=== PATIENT | female | born 1935 | race Caucasian/White ===

== ENCOUNTER 2023-11-28 06:22 | Inpatient (IN) | payer MEDICARE, BC, SELFPAY ==
--- NOTE | 2023-07-24 12:24 | CM ---
Addendum entered by Jennifer Zafar 10/23/23 11:05:
Patient's surgery date has been changed to 11/28/23. Spoke with patient via telephone. Reintroduced role of Orthopedic Navigator and confirmed information previously obtained for case management assessment. Also discussed orthopedic program and post
surgical plans. Reviewed anticipated length of stay and that goal is for her to return home at discharge. Patient states that she is now using a rolling walker most of the day. She also obtained several raised toilet seats. She continues to state
that she will need VN services and will have a private caregiver.
Original Note:
Patient is scheduled for an elective R TKR on 08/29/23. Spoke with patient prior to surgery via telephone. Introduced role of Orthopedic Navigator. Patient reports that she lives alone in a two story home. There are two steps to enter and a flight of
steps to the second floor. She is looking into getting a stair glide for the steps to the second floor. She currently functions independently. She uses a rolling walker in the morning and a cane the rest of the day. She has no other DME. She has
never had VN services. PCP is Dr. Lexus Woods.
Discussed orthopedic program and post surgical plans. Reviewed anticipated length of stay and that goal is for her to return home at discharge. Also reviewed outpatient PT. Patient is in agreement with tentative plan but will need VN services. She
is going to hire a 24 hour private caregiver to be with her for two weeks.
Patient will complete online education.
Plan: Orthopedic Navigator will remain available to assist with the care of patient and will reassess discharge needs after surgery.
[2023-08-07 13:13] VITALS: BMI 26.0
[2023-08-07 14:04] LABS: Hematocrit 40.8 % (37.0-47.0); Hemoglobin 13.5 g/dL (12.0-16.0); Mean Corp Hgb Conc. 33.1 g/dL (33.0-37.0); Mean Corpuscular Hgb 33.5 pg (27.0-31.0); Mean Corpuscular Volume 101.2 fL (81.0-99.0); Mean Platelet Volume 9.3 fL (7.4-10.4); Platelet Count 262 10^3/uL (130-400); Red Blood Cell Count 4.03 10^6/uL (4.20-5.40); Red Cell Dist. Width 12.3 % (11.5-14.5); White Blood Cell Count 6.3 10^3/uL (4.8-10.8)
[2023-08-07 14:19] LABS: ALT (SGPT) 35 U/L (0-35); AST (SGOT) 47 U/L (14-36); Alkaline Phosphatase 72 U/L (38-126); Blood Urea Nitrogen 22 mg/dl (7-17); Calcium 9.5 mg/dl (8.4-10.2); Carbon Dioxide 29 mmol/L (22-30); Chloride 102 mmol/L (98-107); Estimated Creatinine Clearance 51 ml/min; Glucose 90 mg/dl (70-99); Potassium 4.3 mmol/L (3.5-5.1); Sodium 138 mmol/L (135-145); Total Bilirubin 0.6 mg/dl (0.2-1.3); Total Protein 6.4 g/dl (6.3-8.2); eGFR > 60.00
[2023-08-07 15:54] VITALS: BMI 26.0
[2023-08-08 08:51] LABS: Glycohemoglobin (HgbA1c) 5.2 % (4.0-5.6)
[2023-11-06 12:28] VITALS: BMI 26.3
[2023-11-06 14:33] LABS: Hematocrit 40.3 % (37.0-47.0); Hemoglobin 13.8 g/dL (12.0-16.0); Mean Corp Hgb Conc. 34.2 g/dL (33.0-37.0); Mean Corpuscular Hgb 32.2 pg (27.0-31.0); Mean Corpuscular Volume 94.2 fL (81.0-99.0); Mean Platelet Volume 9.4 fL (7.4-10.4); Platelet Count 271 10^3/uL (130-400); Red Blood Cell Count 4.28 10^6/uL (4.20-5.40); Red Cell Dist. Width 12.2 % (11.5-14.5); White Blood Cell Count 8.8 10^3/uL (4.8-10.8)
[2023-11-06 14:49] LABS: ALT (SGPT) 24 U/L (0-35); AST (SGOT) 40 U/L (14-36); Albumin 4.3 g/dl (3.5-5.0); Alkaline Phosphatase 78 U/L (38-126); Blood Urea Nitrogen 32 mg/dl (7-17); Calcium 9.6 mg/dl (8.4-10.2); Carbon Dioxide 22 mmol/L (22-30); Chloride 101 mmol/L (98-107); Estimated Creatinine Clearance 59 ml/min; Glucose 83 mg/dl (70-99); Potassium 4.3 mmol/L (3.5-5.1); Sodium 134 mmol/L (135-145); Total Bilirubin 0.8 mg/dl (0.2-1.3); Total Protein 6.9 g/dl (6.3-8.2); eGFR > 60.00
[2023-11-06 14:50] VITALS: BMI 26.3
[2023-11-07 08:44] LABS: Glycohemoglobin (HgbA1c) 5.4 % (4.0-5.6)
[2023-11-28] VITALS (15 sets, daily range): BP systolic 103–153; BP diastolic 40–97; PULSE 71; O2SAT 91; BMI 26.3
[2023-11-28] MEDS: CELEBREX 200 MG PO (09:15)
[2023-11-28] MEDS: TYLENOL 650 MG PO ×3 (09:16→20:50)
[2023-11-28] MEDS: BACTROBAN NASAL 1 GRAM NASAL (09:16)
[2023-11-28] MEDS: NORMOSOL-R 1000 IV ×2 (09:35→13:01)
--- NOTE | 2023-11-28 12:32 | OR.RPT ---
Addendum entered and electronically signed by Samson Dixon MD 11/28/23 17:56:
Addendum: Note that an adductor canal block was not performed at the end of the case per patient request.
Original Note:
Operative Report
Operative Report
Orthopaedic Surgery Operative Note
DATE OF OPERATION: 11/28/2023
PREOPERATIVE DIAGNOSES: Osteoarthritis, right knee.
POSTOPERATIVE DIAGNOSES: Osteoarthritis, right knee.
OPERATION PERFORMED:
1) Right total knee arthroplasty (CPT 24345)
2) Intraosseous administration of analgesic (CPT 52829)
SURGEON: Samson Dixon MD
ASSISTANTS: Antonio Lovett PA-C who helped with patient and limb positioning and retraction
ANESTHESIA: Spinal by anesthesia plus intreaoperative infusion of morphine into the tibial metaphysis by Dr. Dixon
COMPLICATIONS: None.
ESTIMATED BLOOD LOSS: 20mL
DRAINS: None
TOURNIQUET TIME: 48 minutes.
IMPLANTS:
- Lynne Persona PS Femur, nickel free, size 8
- Lynne Persona tibia base plate, size E
- Lynne Persona 40mm tibial stem
- Lynne Persona CPS articular surface, 10 mm
- All-polyethylene patellar component, size 32
- DJO Kamas bone cement
INDICATIONS: The patient presented to my office with debilitating right knee pain due to osteoarthritis. We reviewed the natural history of this problem, as well as the risks, benefits, and alternatives of various treatment options. The patient
exhausted all nonoperative treatment options and wished to proceed with knee replacement surgery. The patient understood the risks which included, but were not limited to, bleeding, infection, failure to relieve pain, more pain than preop, damage to
blood vessels and nerves, need for reoperation, mechanical failure of the implants, wound healing problems, stiffness, instability, blood clot, pulmonary embolism, myocardial infarction, pneumonia, arrhythmia, CVA, and . The patient accepted
these risks and wished to proceed. All questions were answered, and informed consent was obtained.
PROCEDURE IN DETAIL: The patient was identified in the preoperative holding area. The right knee was identified as the operative site. The patient was taken in the operating room and placed in a supine position on the operating table. Spinal
anesthesia was performed. IV antibiotics and tranexamic acid were administered. An SCD was placed on the left lower extremity. A well-padded tourniquet was placed on the proximal thigh. All bony prominences were well padded. The right lower
extremity was prepped and draped in the usual sterile fashion.
We performed a surgical time-out. An interarticular block was performed with local anesthetic with epinephrine. I performed interosseous administration of morphine-saline solution via a Jamshidi style intraosseous needle into the proximal medial
tibial metaphysis as described by Roderick Borges MD. This was performed to aid in pain control. The limb was exsanguinated with an Esmarch bandage, then the tourniquet was inflated to 250 mmHg. A midline skin incision was made followed by a medial
parapatellar arthrotomy. A subperiosteal peel was performed on the medial tibia. I excised part of the infrapatellar fat pad to improve our visualization as well as tissue over anterior femur. The patella was everted and the knee was flexed. I
excised the remnants of the anterior and posterior cruciate ligaments as well as tibial and femoral osteophytes with rongeurs.
The knee was flexed, and the extramedullary tibial cutting guide was aligned. Catron was aligned at neutral, rotation was centered on the tibial tubercle, and coronal alignment was aligned with the mechanical axis of the tibia and center of the ankle
joint. The cut height was 2mm off the lateral tibia joint surface due to valgus. The guide was secured into place. The MCL and LCL were protected. The tibia surface was cut. The cut surface was inspected after removal to ensure appropriate height
and slope based on the preoperative plan. The cut was checked with a drop perla. It was centered nicely at the ankle.
A drill was used to open the femoral canal. The intramedullary distal femoral cutting guide was inserted into the femur. This was set at 5 degrees +0. This was secured into place with three pins. The cut level was checked with an leon wing. The
distal femur was cut through the cutting guide. The IM guide was reinserted to double check that the level of resection was flush and in appropriate alignment.
Montcalm�s line and the transepicondylar axis were marked on the femur. The femoral sizing guide was applied to the anterior femur. Pins were inserted, and the 4-in-1 cutting guide was applied and secured into place. The rotation was compared to
Carroll�s line, the transepicondylar axis, and the neutral tibia cut and was found to be appropriate. The width was checked and found to be appropriate and lateralized on the femur. The anterior, posterior, and chamfur cuts were made. A lamina
storage wharfage clerk was used to open the flexion gap, and posterior osteophytes were removed with a curved osteotome. The remnant medial and lateral meniscus were also removed. I prophylactically cauterized the lateral geniculate arteries. A 10mm spacer block
was applied to the flexion gap and was noted to be balanced medially and laterally. The knee was extended, and the block showed symmetric to extension and flexion gaps.
The tibia was exposed and sized. Rotation was set in line with the tibial tubercle and congruent with the femur. The trial was secured into place with two pins. The trial femur was impacted into place, and a trial articular surface was placed. The
knee was taken through range of motion and noted to be stable throughout the arc of motion without gaping or excess tension. In extension, a measured resection of the patella was performed. The patella was sized, and lug holes were drilled. A trial
patella component was applied, and it was noted to track centrally throughout the arc of motion without need for further releases.
The trials were removed. The tibia keel was prepared with the punch and the drill. The bone surfaces were irrigated with sterile saline and dried. The cement was mixed in a vacuum mixer. Cement gun was used to apply cement to the tibial surface and
the undersurface of the tibial implant. Cement was pressurized into the tibial canal and tibia surface. The tibial component was impacted into place. Excess cement was removed. Cement was applied to the femoral surface and the femoral component. The
femoral component was impacted into place, and excess cement removed. A trial articular surface was inserted, and the knee was extended while the cement polymerized. The tourniquet was let down, and meticulous hemostasis was achieved. Dilute
betadine was poured into the wound and allowed to soak for 3 minutes. The knee was irrigated with copious normal saline.
Once the cement was polymerized, the trial articular surface was removed. Any excess cement was removed. The knee was trialed, and the final articular surface was selected and inserted into the tibial locking mechanism. The knee was reduced. A fresh
drape was applied to the surgical field.
The arthrotomy was closed with 0-PDS. Once closed, an interarticular block was performed with local anesthetic with epi. The deep dermal layer was closed with 2-0 PDS, and the subcuticular skin was closed with 3-0 monocryl. A Dermabond Prineo
dressing was applied to the skin in full flexion. Once this was completely dry, a sterile waterproof dressing was applied.
The anesthesia team performed an adductor canal block in the OR. The patient awoke from anesthesia without any difficulties. The sponge and instrument counts were correct x2 at the end of the case.
Phill Dixon MD
[2023-11-28] MEDS: ROXICODONE PO ×2 (13:07→14:41)
[2023-11-28] MEDS: ROXICODONE 5 MG PO ×2 (13:09→15:28)
--- NOTE | 2023-11-28 14:23 | W.PN.ORTHO ---
Today's Communication / Plan
-
D/c when clinically stable.
Assessment
.
Distal Motor Intact: Yes
Dressing:
Clean, dry and intact.
Assessment:
R knee OA s/p R TKA w/ Dr Dixon 11/28/23
DVT prophylaxis - Eliquis at modified dosing, b/l venous foot pumps
- Eliquis home dose to be resumed POD 3 if hemodynamically stable
HTN - diet controlled - monitor BP
PACs and PAF, status post pulmonary vein isolation 2016 - monitor on tele
- Resume Eliquis as stated above
TIA, 08/2022, without residual side effects - resume Eliquis as stated above
GERD and hiatal hernia - add Pepcid HS
Mildly elevated AST - reduce max dose of Tylenol daily
Hyperlipidemia
Aortic atherosclerosis
Mild valvular disease
Venous varicosities
Esophageal stricture with dysphagia, status post dilation x2
Colon polyps
Diverticulosis
Nephrolithiasis
Right spigelian hernia
Ocular migraines
Benign thyroid nodules
Left breast cancer, 2019, status post left lumpectomy and radiation
Basal and squamous cell carcinoma, status post recurrent excision
COVID-19 08/2023 without residual side effects
Osteopenia
Tinnitus
Mild hyponatremia
Remote history of tobacco abuse
Plan
.
Surgery / Date: R TKA w/ Dr Dixon 11/28/23
DVT Prophylaxis: Other (Eliquis )
Activity:
Out of bed.
PT/OT
Discharge Plan: Home w/ VN
Subjective
.
.:
Patient resting comfortably in PACU.
R knee pain minimal and currently well tolerated.
Denies any new significant complaints.
Vital Signs and Labs
.
Vital Signs and Labs:
Lab Results
11/06/23 12:23
11/06/23 12:23
Temp Pulse Resp BP Pulse Ox
98.1 F 73 18 153/72 97
11/28/23 09:15 11/28/23 09:15 11/28/23 09:15 11/28/23 09:15 11/28/23 09:15
Physical Exam
-
HEENT: No pallor, cyanosis, or jaundice. Throat clear.
NECK: Supple. No JVD.
RESPIRATORY: Lungs clear to auscultation.
CVS: S1, S2 normal. RRR.�
ABDOMEN: Soft, non-tender. No distension.
EXTREMITIES: Strength equal, no calf pain with palpation/dorsiflexion. Calves soft.
HEMMER LOCKSTITCH: AOx3. No focal deficits. kitchenwhere maker grossly intact
--- NOTE | 2023-11-28 14:30 | PTCARENOTE ---
Patient arrived from PACU. Patient is s/p R TKA. Hemodynamically stable.
[2023-11-28] MEDS: ZOFRAN 4 MG IV (14:41)
[2023-11-28] MEDS: DELTASONE 40 MG PO (15:27)
[2023-11-28] MEDS: LIPITOR 20 MG PO (15:27)
[2023-11-28] MEDS: ANCEF 5 IV (17:42)
[2023-11-28] MEDS: DILAUDID 0.25 MG IV (17:42)
[2023-11-28] MEDS: ROXICODONE 10 MG PO (20:47)
[2023-11-28] MEDS: ELIQUIS 2.5 MG PO (20:50)
[2023-11-28] MEDS: SENOKOT 17.1999999999999993 MG PO (20:50)
[2023-11-28] MEDS: BACTROBAN 2% OINTMENT 1 APPLIC NASAL (20:54)
[2023-11-28] MEDS: COLACE 100 MG PO (20:54)
[2023-11-28] MEDS: PEPCID 20 MG PO (22:59)
[2023-11-29] MEDS: ROXICODONE 10 MG PO (01:00)
[2023-11-29] MEDS: TYLENOL 650 MG PO ×2 (02:18→08:29)
[2023-11-29] MEDS: ANCEF 5 IV (02:18)
[2023-11-29 03:01] VITALS: BP 164/71
[2023-11-29] MEDS: ZOFRAN 4 MG IV ×2 (06:08→12:20)
[2023-11-29] MEDS: ROXICODONE 5 MG PO ×2 (06:20→12:19)
[2023-11-29 07:00] VITALS: BP 154/70
--- NOTE | 2023-11-29 08:21 | W.PN.ORTHO ---
Today's Communication / Plan
-
Await PT and OT recs.
Monitor nausea.
D/c later today if remaining clinically stable.
Assessment
.
Distal Motor Intact: Yes
Dressing:
Clean, dry and intact.
Assessment:
R knee OA s/p R TKA w/ Dr Dixon 11/28/23
DVT prophylaxis - Eliquis at modified dosing, b/l venous foot pumps
- Eliquis home dose to be resumed POD 3 since hemodynamically stable
Nausea post-op - relief provided w/ Zofran - will Rx Zofran prn upon d/c
- Will add daily Protonix
- Did advise Oxycodone w/ food
HTN - diet controlled - BPs stable
PACs and PAF, status post pulmonary vein isolation 2016 - maintaining NSR on tele
- Resumed Eliquis as stated above
TIA, 08/2022, without residual side effects - resumed Eliquis as stated above
GERD and hiatal hernia - switch from Pepcid to Protonix daily for further N/V prevention
Mildly elevated AST - reduced max dose of Tylenol daily
Hyperlipidemia
Aortic atherosclerosis
Mild valvular disease
Venous varicosities
Esophageal stricture with dysphagia, status post dilation x2
Colon polyps
Diverticulosis
Nephrolithiasis
Right spigelian hernia
Ocular migraines
Benign thyroid nodules
Left breast cancer, 2019, status post left lumpectomy and radiation
Basal and squamous cell carcinoma, status post recurrent excision
COVID-19 08/2023 without residual side effects
Osteopenia
Tinnitus
Mild hyponatremia
Remote history of tobacco abuse
Plan
.
Surgery / Date: R TKA w/ Dr Dixon 11/28/23
DVT Prophylaxis: Other (Eliquis )
Activity:
Out of bed.
PT/OT
Discharge Plan: Home w/ VN
Subjective
.
.:
Patient resting comfortably in bed.
Nausea this AM, improved with Zofran as needed.
Denies any other new significant complaints.
Eager for potential d/c today.
Vital Signs and Labs
.
Vital Signs and Labs:
Lab Results
11/06/23 12:23
11/06/23 12:23
Temp Pulse Resp BP Pulse Ox
98.0 F 76 18 154/70 97
11/29/23 07:00 11/29/23 07:00 11/29/23 07:00 11/29/23 07:00 11/29/23 07:00
Non-invasive Hgb result: 11.9
Physical Exam
-
HEENT: No pallor, cyanosis, or jaundice. Throat clear.
NECK: Supple. No JVD.
RESPIRATORY: Lungs clear to auscultation.
CVS: S1, S2 normal. RRR.� No murmur, rub or gallop.
ABDOMEN: Soft, non-tender. No distension.
EXTREMITIES: Expected R knee post-surgical edema. Strength equal, no calf pain with palpation/dorsiflexion. Calves soft.
TIE MILL OPERATOR: AOx3. No focal deficits. ton container shipper grossly intact
[2023-11-29] MEDS: ROXICODONE 2.5 MG PO (08:28)
[2023-11-29] MEDS: LIPITOR 20 MG PO (08:29)
[2023-11-29] MEDS: DELTASONE 40 MG PO (08:30)
[2023-11-29] MEDS: SENOKOT 17.1999999999999993 MG PO (08:30)
[2023-11-29] MEDS: COLACE 100 MG PO (08:30)
[2023-11-29] MEDS: BACTROBAN 2% OINTMENT 1 APPLIC NASAL (08:30)
[2023-11-29] MEDS: ELIQUIS 2.5 MG PO (08:30)
--- NOTE | 2023-11-29 08:39 | CM ---
Addendum entered by Jennifer Zafar 11/29/23 11:55:
Met with patient and her daughter at bedside. Discharge plans again reviewed and neither have concerns at this time about discharge.
Original Note:
Reviewed chart and held rounds with PT, OT and nursing. Patient admitted as planned for elective R TKR. Met with patient at bedside. Confirmed information previously obtained for assessment. Also discussed discharge plans. The plan is for patient to
return home at discharge. Her daughter will be staying with [facility]. She has hired a 24 hour caregiver who will be with her for as long as needed. Reviewed VN services including start of care (tentatively 11/29), services to be ordered (PT, SN) and
frequency/duration of services. Options list provided and PAC data reviewed. Patient selects VN.
Patient has a rolling walker, raised toilet seat and a cane at home.
VN referral was completed and sent to [facility] through [employer] with request for start of care on 11/29. Confirmation received of their ability to accept case. baggage clerk to fax discharge instructions to [facility] when complete.
Patient will use [facility] pharmacy for discharge prescriptions.
[2023-11-29 11:00] VITALS: BP 124/64
--- NOTE | 2023-11-29 12:47 | W.DS.TRANS ---
DC Summary - Rehabilitation Counselor
-
Discharge Instructions:
Sleep Apnea Risk Low
Discharge Diagnosis/Procedures R knee OA s/p R TKA w/ Dr Dixon 11/28/23
Diet Regular
Activity As tolerated,With Walker
Driving Restrictions Not until seen by your Dr
Bathing Restrictions OK to Shower
Other Services PT,VN
Wound Care Leave dressing on until seen by your surgeon's
office in 2 weeks for follow-up.
Instructions:
Stand-Alone Forms: Total Hip/Knee Replacement D/C
Changes to Home Medications: Yes
Discharge Medications:
DC Medications w/original date entered in [employer]
apixaban 5 mg tablet (Eliquis) 5 mg PO BID Blood Clot Prevention/Tx 07/29/23
atorvastatin 20 mg tablet 20 mg PO DAILY High Cholesterol 07/29/23
multivitamin 1 tab PO DAILY Supplement 07/29/23
mupirocin 2 % topical ointment 1 applic intranasal BID #1 tube 11/06/23
acetaminophen 500 mg tablet (Tylenol Extra Strength) 1,000 mg (2 x 500 mg) PO Q8H #30 tabs 11/29/23
apixaban 2.5 mg tablet (Eliquis) 2.5 mg PO BID #3 tabs 11/29/23
docusate sodium 100 mg capsule 100 mg PO BID #30 caps 11/29/23
ondansetron HCl 4 mg tablet 4 mg PO Q6H PRN nausea and vomiting #30 tabs 11/29/23
oxycodone 5 mg tablet 5 - 10 mg (1 - 2 x 5 mg) PO Q4H PRN moderate-severe pain #30 tabs 11/29/23
pantoprazole 40 mg tablet,delayed release (Protonix) 40 mg PO DAILY #14 tabs 11/29/23
prednisone 10 mg tablet 40 mg (4 x 10 mg) PO TAPER #20 tabs 11/29/23
sennosides 8.6 mg tablet (Senna Laxative) 17.2 mg (2 x 8.6 mg) PO BID #30 tabs 11/29/23
Home Medication Changes
acetaminophen 500 mg tablet (Tylenol Extra Strength) 1,000 mg (2 x 500 mg) PO Q8H #30 tabs 11/29/23
apixaban 2.5 mg tablet (Eliquis) 2.5 mg PO BID #3 tabs 11/29/23
docusate sodium 100 mg capsule 100 mg PO BID #30 caps 11/29/23
ondansetron HCl 4 mg tablet 4 mg PO Q6H PRN nausea and vomiting #30 tabs 11/29/23
oxycodone 5 mg tablet 5 - 10 mg (1 - 2 x 5 mg) PO Q4H PRN moderate-severe pain #30 tabs 11/29/23
pantoprazole 40 mg tablet,delayed release (Protonix) 40 mg PO DAILY #14 tabs 11/29/23
prednisone 10 mg tablet 40 mg (4 x 10 mg) PO TAPER #20 tabs 11/29/23
sennosides 8.6 mg tablet (Senna Laxative) 17.2 mg (2 x 8.6 mg) PO BID #30 tabs 11/29/23
Pending Results: No
[2023-11-29] MEDS: PREVNAR 20 0.5 ML IM (13:15)
[2023-11-29 14:11] VITALS: BP 124/64; PULSE 72; O2SAT 93
== END 2023-11-29 14:33 | disposition home health service (06) | DRG 470 ==
LOC: 2 SOUTH 06:22
PROVIDERS: ADMITTING PHYSICIAN Orthopaedic Surgery; FAMILY PHYSICIAN Internal Medicine
PROC: 0SRC0J9 Replacement of Right Knee Joint with Synthetic Substitute, Cemented, Open Approach (ICD-10-PCS; 2023-11-28)
PROC: 3E0234Z Introduction of Serum, Toxoid and Vaccine into Muscle, Percutaneous Approach (ICD-10-PCS; 2023-11-29)
DX: M17.11 Unilateral primary osteoarthritis, right knee (principal); I48.0 Paroxysmal atrial fibrillation; E78.5 Hyperlipidemia, unspecified; I10 Essential (primary) hypertension; K21.9 Gastro-esophageal reflux disease without esophagitis; K44.9 Diaphragmatic hernia without obstruction or gangrene; K43.9 Ventral hernia without obstruction or gangrene; I70.0 Atherosclerosis of aorta; R11.0 Nausea; Z23 Encounter for immunization; Z79.01 Long term (current) use of anticoagulants; Z79.899 Other long term (current) drug therapy; Z86.73 Personal history of transient ischemic attack (TIA), and cerebral infarction without residual deficits; Z87.891 Personal history of nicotine dependence; Z85.3 Personal history of malignant neoplasm of breast; Z86.16 Personal history of COVID-19
CPT/HCPCS: 36415; 73560; 80053; 83036; 85027; 87070; 90677; 97110; 97116; 97162; 97166; 97530; 97535; C1713; C1776; G0009

== ENCOUNTER → 2024-02-14 09:30 | Outpatient (REF) | payer MEDICARE, BC, SELFPAY ==
[2024-02-14 10:07] LABS: Hematocrit 41.2 % (37.0-47.0); Hemoglobin 13.2 g/dL (12.0-16.0); Mean Corpuscular Hgb 29.5 pg (27.0-31.0); Mean Corpuscular Volume 92.2 fL (81.0-99.0); Mean Platelet Volume 8.6 fL (7.4-10.4); Platelet Count 459 10^3/uL (130-400); Red Blood Cell Count 4.47 10^6/uL (4.20-5.40); Red Cell Dist. Width 12.2 % (11.5-14.5); White Blood Cell Count 6.9 10^3/uL (4.8-10.8)
[2024-02-14 10:37] LABS: Blood Urea Nitrogen 22 mg/dl (7-17); Calcium 10.1 mg/dl (8.4-10.2); Carbon Dioxide 29 mmol/L (22-30); Chloride 97 mmol/L (98-107); Glucose 97 mg/dl (70-99); Potassium 4.9 mmol/L (3.5-5.1); Sodium 135 mmol/L (135-145); eGFR > 60.00
== END ==
LOC: SDSPAT 09:30
PROVIDERS: ATTENDING PHYSICIAN Surgery; FAMILY PHYSICIAN Internal Medicine
DX: Z01.818 Encounter for other preprocedural examination (principal)
CPT/HCPCS: 36415; 80048; 85027

== ENCOUNTER 2024-02-26 15:32 | Inpatient (IN) | payer MEDICARE, BC, SELFPAY ==
[2024-02-26 12:00] VITALS: BP 129/84
--- NOTE | 2024-02-26 12:31 | ED.GENMED ---
History of Present Illness
General
Chief Complaint: Skin Problem
Source: patient
Exam Limitations: none
Time Seen by Provider: 02/26/24 12:19
History of Present Illness
History of Present Illness:
See MDM
Past History
Past History
ED Past Medical History: Other (reviewed and agree with nursing documented PMHX)
ED Past Surgical History: None
Social History
Tobacco: Non-smoker
Personal:
Living: with family
Phy Exam
Physical Exam
Physical Exam:
See MDM
Course
Orders/Labs/Results
Orders:
Orders
02/26/24 12:26
Gabapentin [Neurontin] 100 mg PO NOW STA
Morphine Sulfate 4 mg IV NOW STA
Ondansetron Injectable [Zofran] 4 mg IV NOW STA
02/26/24 12:49
Complete Blood Count/With Diff Urgent
Comprehensive Metabolic Panel Urgent
02/26/24 12:52
Morphine Sulfate 2 mg IV NOW STA
02/26/24 13:00
Acyclovir [Zovirax Injection] 600 mg 0.9% Sodium Chloride 100 ml [Nss] 100 ml IV NOW
Abnormal Lab Results
02/26/24
12:49
RBC 4.02 L 10^6/uL
(4.20-5.40)
Hgb 11.8 L g/dL
(12.0-16.0)
Hct 35.3 L %
(37.0-47.0)
Absolute Lymphs (auto) 0.6 L 10^3/uL
(1.2-3.4)
Absolute Monos (auto) 0.8 H 10^3/uL
(0.1-0.6)
Lymphocytes % 11.9 L %
(20.5-51.1)
Monocytes % 15.7 H %
(1.7-9.3)
Sodium 132 L mmol/L
(135-145)
Creatinine 0.5 L mg/dL
(0.6-1.0)
Glucose 139 H mg/dl
(70-99)
Total Protein 5.9 L g/dl
(6.3-8.2)
02/26/24 12:49
02/26/24 12:49
Vital Signs
Initial and Last Documented VS:
Initial Vital Signs
Temp Pulse Resp BP Pulse Ox
99.4 F 90 18 129/84 95
02/26/24 12:00 02/26/24 12:00 02/26/24 12:00 02/26/24 12:00 02/26/24 12:00
Last Documented Vital Signs
Temp Pulse Resp BP Pulse Ox
99.4 F 90 18 129/84 95
02/26/24 12:00 02/26/24 12:00 02/26/24 12:00 02/26/24 12:00 02/26/24 12:00
MDM/Problems Addressed
Differential Diagnosis Includes:
HPI and MDM Narrative:
88-year-old female presenting with worsening shingles. She was diagnosed with shingles a few days ago and placed on oral antivirals. She discussed the case with her doctor in regards to the tramadol not helping. They were going to add gabapentin
but she was sent to the emergency department for admission for IV acyclovir given that the rash has spread drastically along multiple dermatomes. Patient complains of pain but denies headache or confusion
Physical exam
General: Well appearing and non-toxic
HEENT: protecting airway
Neck: appears supple
CV: No evidence of cyanosis
Resp: No accessory muscle use
Abd: Non-distended
Extremities: No deformities
Neuro: alert
Psych: Normal affect
Skin: Shingles rash extending from right back to right neck to right chest and right deltoid. Appears to spread from C3-T3 dermatome
Problems Addressed including Acute and Chronic Conditions affecting care:
1. Shingles rash
Acuity: acute
Prognosis: unstable
Details: Given the multi dermatome and failing outpatient therapy, will start IV acyclovir. Pain is uncontrolled. Will give morphine and gabapentin
Updates
On reexamination after pain medicine, patient feeling much better
Differential Diagnosis (but not limited to): Immunocompromised, shingles
Testing considered:
Drug therapy (if applicable): OTC meds, please see d/c instruction regarding Rx drugs
Amount and/or Complexity of Data Reviewed
Clinical info obtained from: Patient
External data reviewed: N/A
Labs I independently reviewed (but not limited to): White blood cell count normal
Radiology: N/A
Pulse Ox: not hypoxic
EKG independently reviewed: N/A
Dispatch Manager: N/A
Critical Care: N/A
Risk of Complication:
Social Determinants of health: Good social support
Discussed with other providers: Hospitalist
Escalation of Care includes Admit/Obs: Given the disseminated shingles, will admit for IV antiviral
Occasional wrong word or 'sound a like' substitutions may have occurred due to the inherent limitations of voice recognition software. Read the chart carefully and recognize, using context, where substitutions have occurred.
*Critical Care Note
Total Time (30-74mins, 75-104mins- exclusive of procedures): Not Applicable
ED Attending Note
-
Portions of this chart may have been created with voice recognition software.� Occasional wrong word or��sound alike� substitutions may have occurred due to the inherent limitations of voice recognition software.
Discharge Plan
Departure
Patient Disposition: Admit
Date of Disposition: 02/26/24
Time of Disposition: 13:35
Admit to: Med/Surg
Presentation/result/management discussed w/ accepting MD/DO: Hospitalist
Discharge Problem:
Disseminated herpes zoster
Prescriptions:
No Action
atorvastatin 20 mg Tablet
20 mg PO HS
Rolaids 550-110 mg Tablet,Chewable
2 tab PO Q6HPRN PRN (Reason: stomach problems)
tramadol 50 mg Tablet
100 mg PO DAILY
tramadol 50 mg Tablet
75 mg PO HS
famciclovir 500 mg Tablet
500 mg PO Q8H
Patient Comments:
02/26/24: filled 02/24/24, to take 3 tablets a day for 10 days
bisacodyl [Dulcolax (bisacodyl)] 5 mg Tablet,Delayed Release (Dr/Ec)
5 mg PO HS
Eliquis 5 mg Tablet
5 mg PO BID
ondansetron HCl 4 mg tablet
4 mg PO HS
Patient Comments:
02/26/24: to take every night while on Famciclovir
acetaminophen [Tylenol Extra Strength] 500 mg tablet
1,000 mg PO Q8HPRN PRN (Reason: mild pain)
Referrals:
Lexus Woods MD [Family Provider] -
Interventions
Interventions:
*Risk Screen - Suicide Last Done: 02/26/24 12:35
*General Assessment Last Done: 02/26/24 12:35
*Neglect/Abuse Screening Last Done: 02/26/24 12:35
ED- Fall Risk Assessment Last Done: 02/26/24 12:35
*ED COVID-19 Vaccine History Last Done: 02/26/24 12:35
ED-Skin Assessment Last Done: 02/26/24 12:35
Discharge Date and Time
Print Language: BRAZILIAN
[2024-02-26 12:35] VITALS: BMI 23.5
[2024-02-26] MEDS: ZOFRAN 4 MG IV (12:59)
[2024-02-26] MEDS: NEURONTIN 100 MG PO ×2 (12:59→16:58)
[2024-02-26] MEDS: MORPHINE SULFATE 2 MG IV (13:02)
[2024-02-26 13:12] LABS: % Basophils 0.6 % (0-2); % Eosinophils 0.2 % (0-6); % Immature Granulocytes 0.2 % (0-0.5); % Lymphocytes 11.9 % (20.5-51.1); % Monocytes 15.7 % (1.7-9.3); % Neutrophils 71.4 % (42.2-75.2); Absolute Lymphocytes 0.6 10^3/uL (1.2-3.4); Absolute Monocytes 0.8 10^3/uL (0.1-0.6); Absolute Neutrophils 3.6 10^3/uL (1.4-6.5); Hematocrit 35.3 % (37.0-47.0); Hemoglobin 11.8 g/dL (12.0-16.0); Mean Corp Hgb Conc. 33.4 g/dL (33.0-37.0); Mean Corpuscular Hgb 29.4 pg (27.0-31.0); Mean Corpuscular Volume 87.8 fL (81.0-99.0); Mean Platelet Volume 9.1 fL (7.4-10.4); Nucleated Red Blood Cells % 0 %; Platelet Count 291 10^3/uL (130-400); Red Blood Cell Count 4.02 10^6/uL (4.20-5.40); Red Cell Dist. Width 12.8 % (11.5-14.5)
[2024-02-26 13:18] LABS: ALT (SGPT) 16 U/L (0-35); AST (SGOT) 29 U/L (14-36); Albumin 3.6 g/dl (3.5-5.0); Alkaline Phosphatase 76 U/L (38-126); Blood Urea Nitrogen 16 mg/dl (7-17); Calcium 9.1 mg/dl (8.4-10.2); Carbon Dioxide 27 mmol/L (22-30); Chloride 98 mmol/L (98-107); Estimated Creatinine Clearance 59 ml/min; Glucose 139 mg/dl (70-99); Potassium 4.2 mmol/L (3.5-5.1); Sodium 132 mmol/L (135-145); Total Bilirubin 0.5 mg/dl (0.2-1.3); Total Protein 5.9 g/dl (6.3-8.2); eGFR > 60.00
[2024-02-26] MEDS: ZOVIRAX INJECTION 112 MG IV ×2 (13:29→22:06)
--- NOTE | 2024-02-26 14:54 | HPS.HSE ---
Family Physician
-
Family Physician: Lexus Woods
Chief Complaint
-
Worsening shingles
History of Present Illness
88-year-old female with a past medical history of paroxysmal atrial fibrillation on Eliquis, esophageal stricture with dysphagia, TIA, hypertension, hyperlipidemia, osteoarthritis status post recent right knee replacement, and recent biceps femoris
tendon strain presents with worsening shingles rash. Patient reports developing a painful rash on her right neck. She describes it as itchy, painful. She used triamcinolone cream for it, which she has for her psoriasis. She was started on
famciclovir by her PCP. Despite taking the famciclovir, her rash spread from her right neck to her right chest. She denies fever, denies chills. No shortness of breath, no chest pain. No nausea, no vomiting.
Medical History
Past Medical History
Past Medical History: Reports Other
Additional Past Medical History:
1. Osteoarthritis.
2. Hypertension.
3. Hyperlipidemia.
4. Aortic atherosclerosis.
5. Paroxysmal atrial fibrillation, status post pulmonary vein
isolation 2017; oral anticoagulation with Eliquis.
6. PACs.
7. Mild valvular disease.
8. Venous varicosities.
9. TIA, 08/2022, without residual side effects.
10. GERD.
11. Hiatal hernia.
12. Esophageal stricture with dysphagia, status post dilation x2.
13. Colon polyps.
14. Diverticulosis.
15. Nephrolithiasis.
16. Right spigelian hernia.
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
18. Benign thyroid nodules.
19. Left breast cancer, 2019, status post left lumpectomy and
radiation.
20. Basal and squamous cell carcinoma, status post recurrent
excision.
21. COVID-19 08/2023 without residual side effects.
22. Osteopenia.
23. Tinnitus.
24. Mild hyponatremia.
25. Mildly elevated AST.
26. Remote history of tobacco abuse.
27. Psoriasis
28. Recent biceps femoris strain .
Past Surgical History: Reports Other
Additional Past Surgical History:
Right total knee arthroplasty
Basal cell and squamous cell carcinoma excision
Left breast lumpectomy, oophorectomy, cardiac ablation, right inguinal hernia repair
Social History
Tobacco: Former Smoker
Alcohol: Daily
Drug: None
Personal: Single
Family History
Family History: Not pertinent
Allergies / Home Medications
Allergies reflects when Allergies were last updated in [facility].
Home Medications with original date entered in [facility]
Allergy/Medication List:
Allergies
Allergy/AdvReac Type Severity Reaction Status Date / Time
aluminum Allergy Unknown; Verified 02/26/24 12:03
per PCP
clearance
ciprofloxacin [From Cipro] Allergy achilles Verified 02/26/24 12:03
pain/
swelling
nickel Allergy Unknown; Verified 02/26/24 12:03
per PCP
clearance
Home Medications Table - record
�Medication �Instructions �Recorded �Confirmed
atorvastatin 20 mg tablet 20 mg PO HS High Cholesterol 07/29/23 02/26/24
acetaminophen 500 mg tablet 1,000 mg PO Q8HPRN PRN mild pain 02/26/24 02/26/24
(Tylenol Extra Strength)
apixaban 5 mg tablet (Eliquis) 5 mg PO BID 02/26/24 02/26/24
bisacodyl 5 mg tablet,delayed 5 mg PO HS 02/26/24 02/26/24
release (Dulcolax (bisacodyl))
calcium carbonate 550 mg-magnesium 2 tab PO Q6HPRN PRN stomach 02/26/24 02/26/24
hydroxide 110 mg chewable tablet problems
famciclovir 500 mg tablet 500 mg PO Q8H 02/26/24 02/26/24
ondansetron HCl 4 mg tablet 4 mg PO HS 02/26/24 02/26/24
tramadol 50 mg tablet 75 mg PO HS 02/26/24 02/26/24
tramadol 50 mg tablet 100 mg PO DAILY 02/26/24 02/26/24
Review of Systems
-
A 12 point ROS was completed and negative except as noted: Yes
Physical Exam
Vital Signs
Vital Signs
Temp Pulse Resp BP Pulse Ox
99.4 F 90 18 129/84 95
02/26/24 12:00 02/26/24 12:00 02/26/24 12:00 02/26/24 12:00 02/26/24 12:00
Physical Exam
General: No Apparent Distress
HEENT: NormoCephalic, Anicteric and Moist mucous membranes
Respiratory: Clear
Cardiac: S1/S2 and Regular Rhythm
GI: Soft, Non Tender, Non Distended and Normal Bowel Sounds
Musculoskeletal: No Clubbing, No Cyanosis and Edema, Right Lower Extremity
Skin: Other (Diffuse vesicles on an erythematous base on the right cervical dermatomes with extension to the right thoracic dermatomes)
Neuro: Awake, Alert and Oriented
Psych: Calm
Laboratory Results
-
02/26/24 12:49
02/26/24 12:49
Laboratory Results
Total Bilirubin 0.5 mg/dl (0.2-1.3) 02/26/24 12:49
AST 29 U/L (14-36) 02/26/24 12:49
ALT 16 U/L (0-35) 02/26/24 12:49
Alkaline Phosphatase 76 U/L (38-126) 02/26/24 12:49
Impression/Plan
-
HPI: 88-year-old female with a past medical history of paroxysmal atrial fibrillation on Eliquis, esophageal stricture with dysphagia, TIA, hypertension, hyperlipidemia, osteoarthritis status post recent right knee replacement, and recent biceps
femoris tendon strain presents with worsening shingles rash. Patient reports developing a painful rash on her right neck. She describes it as itchy, painful. She used triamcinolone cream for it, which she has for her psoriasis. She was started
on famciclovir by her PCP. Despite taking the famciclovir, her rash spread from her right neck to her right chest. She denies fever, denies chills. No shortness of breath, no chest pain. No nausea, no vomiting.
#Disseminated shingles
Likely from triamcinolone steroid use
Appreciate ID input, will treat with IV acyclovir
Also give IV Ancef for prevention of secondary bacterial infection
#Recent right knee replacement
#Recent biceps for Wil tendon strain
Pain meds, PT/OT
#Paroxysmal atrial fibrillation
Continue Eliquis
#Esophageal stricture status post dilatation
Does not eat a modified diet, monitor
#Hyperlipidemia
Continue statin
DVT prophylaxis�Eliquis
Full code
[2024-02-26] MEDS: ANCEF 10 IV ×2 (15:17→23:41)
[2024-02-26 16:34] VITALS: BMI 23.5
[2024-02-26 16:40] VITALS: BMI 23.1
[2024-02-26 16:41] VITALS: BP 135/60
[2024-02-26] MEDS: TYLENOL 1000 MG PO ×2 (16:57→21:12)
[2024-02-26] MEDS: ELIQUIS 5 MG PO (21:00)
[2024-02-26] MEDS: MIRALAX 17 GRAMS PO (21:00)
[2024-02-26] MEDS: ULTRAM 75 MG PO (21:15)
[2024-02-26] MEDS: LIPITOR 20 MG PO (21:16)
[2024-02-26] MEDS: NEURONTIN 200 MG PO (21:16)
[2024-02-26] MEDS: ZOFRAN 4 MG PO (21:16)
[2024-02-26] MEDS: DULCOLAX 5 MG PO (21:16)
[2024-02-26 23:19] VITALS: BP 113/55
[2024-02-27] MEDS: ZOVIRAX INJECTION 112 MG IV ×3 (05:34→21:09)
[2024-02-27 07:20] VITALS: BP 129/64
--- NOTE | 2024-02-27 07:57 | W.PN.HOSP.TC ---
Today's Communication/Plan
-
see bold
Assessment / Plan
Assessment / Plan
#Disseminated shingles
Likely exacerbated from triamcinolone steroid use
Appreciate ID input, continue IV acyclovir D2
Continue IV Ancef D2 for prevention of secondary bacterial infection
Continue pain meds, gabapentin
Discharge when cleared by ID
#Recent right knee replacement
#Recent biceps for Wil tendon strain
Pain meds, PT/OT
#Paroxysmal atrial fibrillation
Continue Eliquis
#Esophageal stricture status post dilatation
Does not eat a modified diet, monitor
#Hyperlipidemia
Continue statin
DVT prophylaxis�Eliquis
Full code
Total time spent to see the patient on the floor, examine the patient, review data and lab results, discuss treatment plan with patient, nursing staff around 32 minutes.
Physical Exam
General: No Apparent Distress
HEENT: NormoCephalic, Anicteric and Moist mucous membranes
Respiratory: Clear
Cardiac: S1/S2 and Regular Rhythm
GI: Soft, Non Tender, Non Distended and Normal Bowel Sounds
Musculoskeletal: No Clubbing, No Cyanosis and Edema, Right Lower Extremity
Skin: Other (Diffuse vesicles on an erythematous base on the right cervical dermatomes with extension to the right thoracic dermatomes)
Neuro: Awake, Alert and Oriented
Psych: Calm
Anticipated Discharge: Within 24 hours
Subjective/Interval History
-
Date of Service: February 27, 2024
Patient reports feeling much better today. Her shingles pain has improved dramatically. No fever, no vomiting.
Objective Data
-
Vital Signs:
Vital Signs
Temp Pulse Resp BP Pulse Ox
97.8 F 84 18 113/55 93
02/26/24 23:19 02/26/24 23:19 02/26/24 23:19 02/26/24 23:19 02/26/24 23:19
I&O
02/26/24 02/27/24 02/28/24
06:59 06:59 06:59
Intake Total 692 / 692
Balance 692 / 692
[2024-02-27] MEDS: ULTRAM 100 MG PO (07:59)
[2024-02-27] MEDS: TYLENOL 1000 MG PO ×3 (07:59→21:06)
[2024-02-27] MEDS: NEURONTIN 100 MG PO ×2 (08:00→16:11)
[2024-02-27] MEDS: ANCEF 10 IV (08:00)
[2024-02-27] MEDS: ELIQUIS 5 MG PO ×2 (08:00→21:07)
[2024-02-27] MEDS: MIRALAX 17 GRAMS PO ×2 (08:00→21:07)
--- NOTE | 2024-02-27 13:12 | W.PN.ID1 ---
Date of Service
Date of Service: February 27, 2024
Today's Communication
- likely disseminated due to topical steroid use; patient will not use further topical steroids to the rash
- not known to be immunosuppressed
- continue IV acyclovir 10 mg/kg IV q8 hrs tonight - tomorrow switch to valacyclovir 1 gm TID for 10 days (02/25-03/06)
- will stop cefazolin at this time
Assessment / Plan
Disseminated VZV (Complicated VZV)
- likely disseminated due to topical steroid use; patient will not use further topical steroids to the rash
- not known to be immunosuppressed
- continue IV acyclovir 10 mg/kg IV q8 hrs tonight - tomorrow switch to valacyclovir 1 gm TID for 10 days (02/25-03/06)
- will stop cefazolin at this time
- airborn and contact precautions as lesions are disseminated
- patient aware that it can be spread via fomites, avoid touching the lesions
- follow clinically
Chief Complaint
-: Other (disseminated VZV)
Subjective / Review of Systems
remains afebrile
bp stbale
no labs this am and not needed from my perspective
Vital Signs / Physical Exam
Vital Signs
Vital Signs
Temp Pulse Resp BP Pulse Ox
98.0 F 80 18 129/64 97
02/27/24 07:20 02/27/24 07:20 02/27/24 07:20 02/27/24 07:20 02/27/24 07:20
Physical Exam
Constitutional: No Acute Distress
Eyes: Other (no ocular involvement)
Cardiovascular: Regular Rate and S1/S2; Negative Murmur or Rub
Pulmonary: Clear and Symmetric; Negative Wheezes or Rales
Gastrointestinal: Soft, Non Tender, Non Distended and Normal Bowel Sounds
Skin: Warm, Dry and Rash (single new lesion adjacent to the ear; dew drop on glenn petal type rash across 4+ dermatomas on the chest wall; lesions are not yet crusting); Negative Jaundice
Objective Data
Lab Data
Lab Results
02/26/24 12:49
02/26/24 12:49
Estimated Creat Clear 59 ml/min 02/26/24 12:49
Total Bilirubin 0.5 mg/dl (0.2-1.3) 02/26/24 12:49
AST 29 U/L (14-36) 02/26/24 12:49
ALT 16 U/L (0-35) 02/26/24 12:49
Alkaline Phosphatase 76 U/L (38-126) 02/26/24 12:49
Most recent labs reviewed.
[2024-02-27 15:10] VITALS: BP 124/65
--- NOTE | 2024-02-27 15:18 | CON.ID ---
Consultation
-
Date/Time Consultation Requested: 02/26/24 14:05
Date/Time Consultation Performed: 02/26/24 14:05
Requesting Provider: Dr Willett
Performing Provider: Dr Acharya
Reason for Consultation: disseminated VZV
Chief Complaint / Past History
Chief Complaint
disseminated rash
History of Present Illness
Ms Mcpherson is an 88 year old female not known to be immunocompromised however with right knee replacement about 2.5 months ago and recent biceps femoris strain about 2 weeks for which she has been taking tramadol and which has been very stressful.
She has been doing aquatherapy for the last two weeks with some relief. Last saturday her daughter thought she noticed a rash on her neck, she didnt appreciate anything and no further actions were taken. Then over the weekend she developed a raised,
itchy, painful, vesicular rash in a dermatomal pattern. No headache or stiff neck. No fevers or chills. She decided to start triamcinolone 1% cream on the rash which she has at home for psoriasis. She saw her PCP and was started and famcyclovir
which she took for four doses however the rash has spread to cover most of her right chest wall and is quite painful and so she presented to the ER for further evaluation. She has stopped the steroid cream. Reports she has been trying to avoid
touching the rash and has only blotted it with a towel - not rubbed. Of note she had a single dose of zostavax years ago and her first dose of Shingrix before the covid pandemic. She was planned for her second dose of shingrix after the current
surgery.
Since arrival here she has been afebrile, bp stable, without leukocytosis, there is no L shift, eos are no present, cr 0.5, glucose 139, a1c earlier this year was 5.4, t bili 0.5, ast 29, alt 16, alk phos 79, on physical exam she has an extensive
vesicular rash across 4+ dermatoma involving most of the right trunk, a single lesion near the ear, abrupt transition point at the midline, there is some erythema around the lesions

Original consult note was inadvertently placed into a future visit rather than the correct current visit. This paper is a copy of the original note form 02/25 to position it within the appropriate visit.
Past History
Additional Past Medical History:
Past medical and Past surgical history
1. Osteoarthritis.
2. Hypertension.
3. Hyperlipidemia.
4. Aortic atherosclerosis.
5. Paroxysmal atrial fibrillation, status post pulmonary vein
isolation 2017; oral anticoagulation with Eliquis.
6. PACs.
7. Mild valvular disease.
8. Venous varicosities.
9. TIA, 08/2022, without residual side effects.
10. GERD.
11. Hiatal hernia.
12. Esophageal stricture with dysphagia, status post dilation x2.
13. Colon polyps.
14. Diverticulosis.
15. Nephrolithiasis.
16. Right spigelian hernia.
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
18. Benign thyroid nodules.
19. Left breast cancer, 2019, status post left lumpectomy and
radiation.
20. Basal and squamous cell carcinoma, status post recurrent
excision.
21. COVID-19 08/2023 without residual side effects.
22. Osteopenia.
23. Tinnitus.
24. Mild hyponatremia.
25. Mildly elevated AST.
26. Remote history of tobacco abuse.
Additional Past Surgical History:
Allergy History:
Allergy History:
aluminum Allergy (Verified 02/26/24 12:03)
Unknown; per PCP clearance
ciprofloxacin [From Cipro] Allergy (Verified 02/26/24 12:03)
achilles pain/ swelling
nickel Allergy (Verified 02/26/24 12:03)
Unknown; per PCP clearance
Medications Reviewed: Yes
Social History
Tobacco: Former Smoker
Alcohol: Daily ((1 drink 5 nights per week))
Personal: Single
Family History
Family History: Not Pertinent
Review of Systems
Review of Systems
General: Negative Fever or Chills
All systems: All other systems were reviewed and were negative
Vital Signs
Temp Pulse Resp BP Pulse Ox
98.0 F 80 18 129/64 97
02/27/24 07:20 02/27/24 07:20 02/27/24 07:20 02/27/24 07:20 02/27/24 07:20
Physical Exam
Physical Exam
Constitutional: No Acute Distress
Cardiovascular: Regular Rate and S1/S2; Negative Murmur or Rub
Pulmonary: Clear and Symmetric; Negative Wheezes, Rales or Rhonchi
Gastrointestinal: Soft, Non Tender, Non Distended and Normal Bowel Sounds
Skin: Warm, Dry and Rash ((extensive vesicular rash (dew drop on glenn petal) across 4+ dermatomes from the shoulder to below the right breast)); Negative Jaundice
Neurological: Awake
Lab / Diagnostic Study Results
02/26/24 12:49
02/26/24 12:49
Abs Immat Gran (auto) 0.0 10^3/uL (0-0.05) 02/26/24 12:49
Absolute Neuts (auto) 3.6 10^3/uL (1.4-6.5) 02/26/24 12:49
Absolute Lymphs (auto) 0.6 10^3/uL (1.2-3.4) L 02/26/24 12:49
Absolute Monos (auto) 0.8 10^3/uL (0.1-0.6) H 02/26/24 12:49
Absolute Basos (auto) 0.0 10^3/uL (0-0.2) 02/26/24 12:49
Immature Gran % 0.2 % (0-0.5) 02/26/24 12:49
Neutrophils % 71.4 % (42.2-75.2) 02/26/24 12:49
Lymphocytes % 11.9 % (20.5-51.1) L 02/26/24 12:49
Monocytes % 15.7 % (1.7-9.3) H 02/26/24 12:49
Eosinophils % 0.2 % (0-6) 02/26/24 12:49
Basophils % 0.6 % (0-2) 02/26/24 12:49
Assessment / Plan
Disseminated VZV (Complicated VZV)
- likely disseminated due to topical steroid use; patient will not use further topical steroids to the rash
- not known to be immunosuppressed
- continue IV acyclovir 10 mg/kg IV q8 hrs tonight - tomorrow switch to valacyclovir 1 gm TID for 10 days (02/25-03/06)
- will stop cefazolin at this time
- airborn and contact precautions as lesions are disseminated
- patient aware that it can be spread via fomites, avoid touching the lesions
- follow clinically
Care Review
Plan reviewed with: Physician ((Dr Willett, Dr Fu - admission and management))
[2024-02-27] MEDS: DULCOLAX 5 MG PO ×2 (16:25→21:07)
[2024-02-27] MEDS: ULTRAM 75 MG PO (21:07)
[2024-02-27] MEDS: LIPITOR 20 MG PO (21:07)
[2024-02-27] MEDS: NEURONTIN 200 MG PO (21:07)
[2024-02-27] MEDS: ZOFRAN 4 MG PO (21:07)
[2024-02-27 22:56] VITALS: BP 131/60
[2024-02-28] MEDS: VALTREX 1000 MG PO ×2 (05:45→08:29)
[2024-02-28 07:20] VITALS: BP 130/60
[2024-02-28 08:00] VITALS: BP 130/60
--- NOTE | 2024-02-28 08:13 | W.PN.HOSP.TC ---
Today's Communication/Plan
-
Discharge today
Assessment / Plan
Assessment / Plan
#Disseminated shingles
Likely exacerbated from triamcinolone steroid use
S/p IV Ancef for prevention of secondary bacterial infection
Appreciate ID input, s/p IV acyclovir, stable for dc on valacyclovir 1 gm TID for 10 days (02/25-03/06)
F/u w/ PCP in 1 week
Continue pain meds, gabapentin
#Recent right knee replacement
#Recent biceps for Wil tendon strain
Pain meds, PT/OT
#Paroxysmal atrial fibrillation
Continue Eliquis
#Esophageal stricture status post dilatation
Does not eat a modified diet, monitor
#Hyperlipidemia
Continue statin
DVT prophylaxis�Eliquis
Full code
Physical Exam
General: No Apparent Distress
HEENT: NormoCephalic, Anicteric and Moist mucous membranes
Respiratory: Clear
Cardiac: S1/S2 and Regular Rhythm
GI: Soft, Non Tender, Non Distended and Normal Bowel Sounds
Musculoskeletal: No Clubbing, No Cyanosis and Edema, Right Lower Extremity
Skin: Other (Diffuse vesicles on an erythematous base on the right cervical dermatomes with extension to the right thoracic dermatomes)
Neuro: Awake, Alert and Oriented
Psych: Calm
Anticipated Discharge: Today
Subjective/Interval History
-
Date of Service: February 28, 2024
Pain improves. No fever, no vomiting.
Objective Data
-
Vital Signs:
Vital Signs
Temp Pulse Resp BP Pulse Ox
97.8 F 81 18 131/60 97
02/27/24 22:56 02/27/24 22:56 02/27/24 22:56 02/27/24 22:56 02/27/24 22:56
I&O
02/27/24 02/28/24 02/29/24
06:59 06:59 06:59
Intake Total 392 / 692 8782 / 4566
Balance 692 / 692 1332 / 6879
[2024-02-28] MEDS: ELIQUIS 5 MG PO (08:27)
[2024-02-28] MEDS: NEURONTIN 100 MG PO (08:27)
[2024-02-28] MEDS: ULTRAM 100 MG PO (08:28)
[2024-02-28] MEDS: TYLENOL 1000 MG PO (08:28)
[2024-02-28] MEDS: MIRALAX 17 GRAMS PO (08:29)
--- NOTE | 2024-02-28 10:41 | W.DCSUMMARY ---
Discharge Summary
Discharge Data
Date of Admission: 02/26/24
Date of Discharge: 02/28/24
-
Pending Results: No
Hospital Course
Discharge diagnoses:
Disseminated shingles
Constipation
Recent right knee replacement
Recent biceps femoris tendon strain
Paroxysmal atrial fibrillation on Eliquis
Esophageal stricture status postdilatation
Hyperlipidemia
Consults: ID
Hospital course:
88-year-old female with a past medical history of paroxysmal atrial fibrillation on Eliquis, esophageal stricture s/p dilatation, TIA, hypertension, hyperlipidemia, osteoarthritis status post recent right knee replacement, and recent biceps femoris
tendon strain was admitted for disseminated shingles rash on her right cervical and upper thoracic dermatomes. Patient recently started having a painful, itchy rash with vesicles 1 week ago. She used triamcinolone cream that she had for her
psoriasis. She was prescribed famciclovir by her PCP, which she has been taking, but her rash got worse.
Patient was seen in conjunction with ID for her disseminated shingles. She was treated with IV acyclovir. She also received a few doses of IV Ancef to prevent bacterial superinfection. She received pain medications and gabapentin. After several
days, her pain improved dramatically. She is medically stable and cleared by ID for discharge on Valacyclovir 1 g 3 times daily for 10 days through 03/06/2024.
Patient also had constipation. She was treated with an aggressive bowel regimen, and will be discharged on increased laxatives.
She needs to follow-up with her primary care doctor in 1 week.
Disposition: Home self-care
Discharge planning: Required 39 min
Discharge Plan
-
Patient Disposition: Home (Routine Discharge)
Discharge Diagnosis/Procedures: Shingles
Condition: Good
Diet: Low Fat and Low Cholesterol
Activity: As tolerated
Driving Restrictions: As prior to admission
Activity Restrictions/Additional Instructions:
Follow up with your PCP in 1 week, call for an appointment.
Referrals:
Lexus Woods MD [Family Provider] - in one week
Prescriptions:
New
valacyclovir 500 mg Tablet
1,000 mg PO TID 8 Days Qty: 48 0RF
gabapentin 100 mg Capsule
100 mg PO BID@0800,1600 Qty: 60 0RF
gabapentin 100 mg Capsule
200 mg PO HS Qty: 60 0RF
polyethylene glycol 3350 17 gram/dose powder
17 g PO BID Qty: 510 0RF
bisacodyl 10 mg suppository
10 mg IA DAILY PRN (Reason: Constipation) Qty: 30 0RF
Continued
atorvastatin 20 mg Tablet
20 mg PO HS
calcium carbonate-mag hydroxid 550-110 mg Tablet,Chewable
2 tab PO Q6HPRN PRN (Reason: stomach problems)
tramadol 50 mg Tablet
100 mg PO DAILY
tramadol 50 mg Tablet
75 mg PO HS
Eliquis 5 mg Tablet
5 mg PO BID
ondansetron HCl 4 mg tablet
4 mg PO HS
Patient Comments:
02/26/24: to take every night while on Famciclovir
acetaminophen [Tylenol Extra Strength] 500 mg tablet
1,000 mg PO Q8HPRN PRN (Reason: mild pain)
Changed
bisacodyl [Dulcolax (bisacodyl)] 5 mg Tablet,Delayed Release (Dr/Ec)
10 mg PO HS Qty: 0 0RF
Discontinued
famciclovir 500 mg Tablet
500 mg PO Q8H
Patient Comments:
02/26/24: filled 02/24/24, to take 3 tablets a day for 10 days
Discharge Orders:
Discharge Patient (As Directed); Ordered 02/28/24
Ordered By: David Welch
Discharge Date and Time
Discharge Date/Time: 02/28/24 12:40
Print Language: CZECH
--- NOTE | 2024-02-28 10:45 | PTOTSP ---
PT will sign off as pt is independent.
--- NOTE | 2024-02-28 10:58 | W.PN.ID1 ---
Date of Service
Date of Service: February 28, 2024
Today's Communication
- switch to valacyclovir 1 gm TID for 10 days (02/25-03/06)
Assessment / Plan
Disseminated VZV (Complicated VZV)
- likely disseminated due to topical steroid use; patient will not use further topical steroids to the rash
- not known to be immunosuppressed
- switch to valacyclovir 1 gm TID for 10 days (02/25-03/06)
- airborn and contact precautions as lesions are disseminated
- patient aware that it can be spread via fomites, avoid touching the lesions/rubbing with towel
- follow up with pcp
Chief Complaint
-: Other (disseminated VZV)
Subjective / Review of Systems
afebrile
bp stable
no labs today
Vital Signs / Physical Exam
Vital Signs
Vital Signs
Temp Pulse Resp BP Pulse Ox
98.0 F 82 20 130/60 96
02/28/24 07:20 02/28/24 07:20 02/28/24 07:20 02/28/24 07:20 02/28/24 09:55
Physical Exam
Constitutional: No Acute Distress
Cardiovascular: Regular Rate and S1/S2; Negative Murmur or Rub
Pulmonary: Clear and Symmetric; Negative Wheezes or Rales
Gastrointestinal: Soft, Non Tender, Non Distended and Normal Bowel Sounds
Skin: Warm, Dry and Rash (lesions stable, no definite new lesions, not yet crusting); Negative Jaundice
Objective Data
Lab Data
Lab Results
02/26/24 12:49
02/26/24 12:49
Estimated Creat Clear 59 ml/min 02/26/24 12:49
Total Bilirubin 0.5 mg/dl (0.2-1.3) 02/26/24 12:49
AST 29 U/L (14-36) 02/26/24 12:49
ALT 16 U/L (0-35) 02/26/24 12:49
Alkaline Phosphatase 76 U/L (38-126) 02/26/24 12:49
Most recent labs reviewed.
--- NOTE | 2024-02-28 11:28 | CM ---
Initial assessment completed with patient who lives alone in a 2 story townhouse plus basement, 2 steps to enter, B/B on and 1/2 bath on , DME is [employer]W, RTS, Quad cane, stair lift, no in-home services. [employer] patient as independent and drove. No
history of Psychiatric hospitalizations. Pharmacy is [facility] on [address] in [place] and PCP is dr. Lexus Woods. Anticipate discharge to home with no needs.
--- NOTE | 2024-02-28 11:35 | CM ---
Patient has been medically cleared for discharge to home with no additional skilled services. Patient's daughter will transport home.
== END 2024-02-28 12:40 | disposition home or self-care (01) | DRG 866 ==
LOC: 2 NORTH 15:32
PROVIDERS: ADMITTING PHYSICIAN Family Medicine; CONSULT PHYSICIAN Student in an Organized Health Care Education/Training Program; EMERGENCY PHYSICIAN Student in an Organized Health Care Education/Training Program; FAMILY PHYSICIAN Internal Medicine
DX: B02.7 Disseminated zoster (principal); E87.1 Hypo-osmolality and hyponatremia; I48.0 Paroxysmal atrial fibrillation; K59.00 Constipation, unspecified; K22.2 Esophageal obstruction; E78.5 Hyperlipidemia, unspecified; Z96.651 Presence of right artificial knee joint; Z79.01 Long term (current) use of anticoagulants; Z86.73 Personal history of transient ischemic attack (TIA), and cerebral infarction without residual deficits
CPT/HCPCS: 80053; 85025; 96374; 96375; 97162; 99284

== ENCOUNTER 2024-05-08 08:45 | Emergency (ER) | payer MEDICARE, BC, SELFPAY ==
[2024-05-08 08:52] VITALS: BP 161/78
--- NOTE | 2024-05-08 09:05 | ED.CVA ---
History of Present Illness
General
Chief Complaint: CVA/TIA Symptoms
Source: patient, family and physician
Exam Limitations: none
Time Seen by Provider: 05/08/24 08:55
Nursing documentation reviewed up to this point in time: agreed with
Onset of Stroke Symptoms
Onset of symptoms known: Yes
Date of onset of symptoms: 05/08/24
Time of onset of symptoms: 06:30
History of Present Illness
History of Present Illness:
88-year-old female PAF on Eliquis recently decreased her dose to half a tablet twice a day due to weight loss, middle the night had some headache, went back to bed woke up around 6:30 AM with some mild frontal headache with blurry vision, no slurred
speech no arm or leg weakness, no facial weakness, called her art manager who then called here referred to the ER for evaluation she looks well here, speech is normal her daughter is with her states she seems fine to her patient tells me she does not
get a lot of headaches typically though she took some Tylenol feeling a bit better she admits to be compliant with her Eliquis as prescribed
Patient does tell me she has had issues with her sodium previously
Past History
Past History
ED Past Medical History: Other (PAF, TIA)
ED Past Surgical History: None
Social History
Tobacco: Non-smoker
Alcohol: None
Drug: None
Personal:
Living: with family
Employment: Retired
Phy Exam
Physical Exam
Physical Exam:
Physical Exam
General: no apparent distress, not acutely ill
Neck: No jaundice
Heart: s1/s2 regular rate and rhythm, no murmur. equal radial pulses.
Lungs: no acute respiratory distress. clear bilaterally
Abdomen: Nontender
Neuro: alert and oriented. no focal neurological deficits
Skin: no rash
Psychiatric: well kept. interactive and cooperative
Extremities: no edema.
Course
Orders/Labs/Results
Orders:
Orders
05/08/24 08:55
Electrocardiogram (*1) Stat
Reason for Study: Other
Other Reason for Exam: neuro symptoms
CT Head W/o Iv Contrast Urgent
Comment:
Reason For Exam: bluyrry vision
Bedside Glucose- Treatment ONCE
Cardiac Monitoring- Treatment ONCE
EKG- Treatment ONCE
05/08/24 09:05
Visual Acuity- Treatment ONCE
05/08/24 09:10
Basic Metabolic Panel Urgent
Complete Blood Count/With Diff Urgent
05/08/24 10:20
Acetaminophen [Tylenol] 650 mg PO NOW STA
Tramadol HCl [Ultram] 50 mg PO NOW STA
Abnormal Lab Results
05/08/24
09:10
MCHC 32.8 L g/dL
(33.0-37.0)
RDW 15.0 H %
(11.5-14.5)
Absolute Lymphs (auto) 0.9 L 10^3/uL
(1.2-3.4)
Neutrophils % 76.3 H %
(42.2-75.2)
Lymphocytes % 13.6 L %
(20.5-51.1)
Sodium 134 L mmol/L
(135-145)
Creatinine 0.5 L mg/dL
(0.6-1.0)
Glucose 101 H mg/dl
(70-99)
05/08/24 09:10
05/08/24 09:10
Vital Signs
Initial and Last Documented VS:
Initial Vital Signs
Temp Pulse Resp Pulse Ox
98.4 F 83 18 96
05/08/24 08:49 05/08/24 08:49 05/08/24 08:49 05/08/24 08:49
Last Documented Vital Signs
Temp Pulse Resp BP Pulse Ox
98.4 F 76 18 169/81 96
05/08/24 08:49 05/08/24 10:15 05/08/24 10:15 05/08/24 10:10 05/08/24 08:49
MDM/Problems Addressed
Differential Diagnosis Includes:
TIA CVA intracerebral hemorrhage ocular issues electrolyte abnormality
Chronic conditions affecting care: Arrhythmia and Neurological disorder
Acute Exacerbation and/or Progression of Chronic Illness:
tia prior
Acute Exacerbation and/or Progression of Chronic Illness: Arrhythmia and Neurological disorder
*Radiology
Radiology exam reviewed: radiology read reviewed
*Pulse Oximetry
Patient hypoxic: no
*EKG
Interpreted by ED Provider?: Yes
Interpretation: normal
Comparison EKG: no comparison EKG present
Heart Rate: 78
Rate: normal
Ischemia: no ischemia
*Maintenance Electrician Interpretation
Rate: normal
Interpretation: normal
Heart Rate: 78
Rhythm: sinus
*Critical Care Note
Total Time (30-74mins, 75-104mins- exclusive of procedures): Not Applicable
Data Reviewed
Review of Other/Old Records Reveals: Labs and Progress Notes
Source: patient, records, family, physician and previous hospital records
Prescriptions/Medications Considered But Not Given:
Alteplase TNKase
Update Note
Update Note:
Update CT noted labs noted patient looks well nonfocal neurologic exam visual acuities intact states she has a minimal headache she also like to have her morning tramadol, which I ordered for her in addition some Tylenol PCP updated
ED Attending Note
-
Portions of this chart may have been created with voice recognition software.� Occasional wrong word or��sound alike� substitutions may have occurred due to the inherent limitations of voice recognition software.
Discharge Plan
Departure
Patient Disposition: Home (Routine Discharge)
Date of Disposition: 05/08/24
Time of Disposition: 10:57
Patient with high blood pressure during this ER visit?: Yes
Condition: Good
Covid-19: Not Applicable
Discharge Problem:
Headache
Instructions: Headache, Adult (DC)
Prescriptions:
No Action
atorvastatin 20 mg Tablet
20 mg PO HS
calcium carbonate-mag hydroxid 550-110 mg Tablet,Chewable
2 tab PO Q6HPRN PRN (Reason: stomach problems)
tramadol 50 mg Tablet
100 mg PO DAILY
tramadol 50 mg Tablet
75 mg PO HS
Eliquis 5 mg Tablet
5 mg PO BID
ondansetron HCl 4 mg tablet
4 mg PO HS
Patient Comments:
02/26/24: to take every night while on Famciclovir
acetaminophen [Tylenol Extra Strength] 500 mg tablet
1,000 mg PO Q8HPRN PRN (Reason: mild pain)
valacyclovir 500 mg Tablet
1,000 mg PO TID 8 Days Qty: 48 0RF
gabapentin 100 mg Capsule
100 mg PO BID@0800,1600 Qty: 60 0RF
gabapentin 100 mg Capsule
200 mg PO HS Qty: 60 0RF
polyethylene glycol 3350 17 gram/dose powder
17 g PO BID Qty: 510 0RF
bisacodyl 10 mg suppository
10 mg AR DAILY PRN (Reason: Constipation) Qty: 30 0RF
bisacodyl [Dulcolax (bisacodyl)] 5 mg Tablet,Delayed Release (Dr/Ec)
10 mg PO HS Qty: 0 0RF
Referrals:
Lexus Woods MD [Family Provider] - Next open appointment
Activity Restrictions/Additional Instructions:
Tylenol every 4 hours as needed for headache continue your other medications as prescribed return to the ER if worsening symptoms follow-up with your eye doctor
Interventions
Interventions:
*Risk Screen - Suicide Last Done: 05/08/24 08:49
*General Assessment Last Done: 05/08/24 08:49
*Neglect/Abuse Screening Last Done: 05/08/24 08:49
*ED COVID-19 Vaccine History Last Done: 05/08/24 09:13
ED- Cardiac Assessment Last Done: 05/08/24 09:22
ED-EENT Assessment Last Done: 05/08/24 09:27
ED- Neurological Assessment Last Done: 05/08/24 09:03
ED- Pulmonary Assessment Last Done: 05/08/24 09:03
ED Swallowing Screen Last Done: 05/08/24 09:13
Discharge Date and Time
Print Language: TURKMEN
[2024-05-08 09:20] LABS: % Basophils 0.9 % (0-2); % Eosinophils 1.2 % (0-6); % Immature Granulocytes 0.3 % (0-0.5); % Lymphocytes 13.6 % (20.5-51.1); % Monocytes 7.7 % (1.7-9.3); % Neutrophils 76.3 % (42.2-75.2); Absolute Basophils 0.1 10^3/uL (0-0.2); Absolute Eosinophils 0.1 10^3/uL (0-0.7); Absolute Lymphocytes 0.9 10^3/uL (1.2-3.4); Absolute Monocytes 0.5 10^3/uL (0.1-0.6); Hematocrit 41.8 % (37.0-47.0); Hemoglobin 13.7 g/dL (12.0-16.0); Mean Corp Hgb Conc. 32.8 g/dL (33.0-37.0); Mean Corpuscular Hgb 30.6 pg (27.0-31.0); Mean Corpuscular Volume 93.5 fL (81.0-99.0); Mean Platelet Volume 8.8 fL (7.4-10.4); Nucleated Red Blood Cells % 0 %; Platelet Count 248 10^3/uL (130-400); Red Blood Cell Count 4.47 10^6/uL (4.20-5.40); White Blood Cell Count 6.5 10^3/uL (4.8-10.8)
[2024-05-08 09:25] LABS: Glucose - Point of Care 86 mg/dl (70-99)
[2024-05-08 09:50] LABS: Blood Urea Nitrogen 14 mg/dl (7-17); Calcium 8.9 mg/dl (8.4-10.2); Carbon Dioxide 25 mmol/L (22-30); Chloride 98 mmol/L (98-107); Glucose 101 mg/dl (70-99); Sodium 134 mmol/L (135-145); eGFR > 60.00
[2024-05-08 10:10] VITALS: BP 169/81
[2024-05-08] MEDS: ULTRAM 50 MG PO (10:23)
[2024-05-08] MEDS: TYLENOL 650 MG PO (10:23)
[2024-05-08 11:00] VITALS: BP 167/83
== END 2024-05-08 11:14 | disposition home or self-care (01) ==
LOC: EMR 08:45
PROVIDERS: EMERGENCY PHYSICIAN Emergency Medicine; FAMILY PHYSICIAN Internal Medicine
DX: R51.9 Headache, unspecified (principal); I48.0 Paroxysmal atrial fibrillation; Z79.01 Long term (current) use of anticoagulants; Z86.73 Personal history of transient ischemic attack (TIA), and cerebral infarction without residual deficits
CPT/HCPCS: 99284; 70450; 80048; 82962; 85025; 93005

== ENCOUNTER → 2024-10-22 12:15 | Outpatient (REF) | payer MEDICARE, BC, SELFPAY | LOC: RAD 12:15 | PROVIDERS: ATTENDING PHYSICIAN Internal Medicine | DX: R10.9 Unspecified abdominal pain (principal) | CPT/HCPCS: 74177; Q9967 ==

== ENCOUNTER 2024-11-19 06:31 | Day surgery (SDC) | payer MEDICARE, BC, SELFPAY | END 2024-11-19 13:06 | disposition home or self-care (01) | LOC: GI 06:31 | PROVIDERS: ATTENDING PHYSICIAN Internal Medicine Gastroenterology | DX: K31.89 Other diseases of stomach and duodenum (principal); R10.13 Epigastric pain; K31.7 Polyp of stomach and duodenum; R93.3 Abnormal findings on diagnostic imaging of other parts of digestive tract; K29.50 Unspecified chronic gastritis without bleeding | CPT/HCPCS: 43239; 88305; 88342 ==

== ENCOUNTER 2025-01-08 20:45 | Inpatient (IN) | payer MEDICARE, BC, SELFPAY ==
[2025-01-08] VITALS (8 sets, daily range): BP systolic 109–161; BP diastolic 67–85; BMI 24.7
[2025-01-08] MEDS: DILAUDID 0.5 MG IV (17:42)
[2025-01-08] MEDS: NSS 500 IV (17:47)
[2025-01-08] MEDS: ZOFRAN 4 MG IV ×2 (17:47→19:13)
--- NOTE | 2025-01-08 17:59 | ED.MUSCINJ ---
HPI-Injury
General
Chief Complaint: Musculo-Skeletal Complaint
Source: patient, records and previous hospital records
Exam Limitations: none
Time Seen by Provider: 01/08/25 16:54
Nursing documentation reviewed up to this point in time: agreed with
History of Present Illness-Injury
Is this injury a work related problem?: No
Is pt an associate of [facility]?: No
Initial Injury comments:
89-year-old female very pleasant slip and fall struck her left hip and femur on the ground, just prior to arrival she takes Eliquis she had a right knee replacement, no head strike no neck pain no preceding chest x-ray, she has had A-fib she has had
an ablation difficulty ambulating due to pain,
Past History
Past History
ED Past Medical History: Other (PAF, TIA)
ED Past Surgical History: None
Social History
Tobacco: Non-smoker
Alcohol: None
Drug: None
Personal:
Living: with family
Employment: Retired
Phy Exam
Physical Exam
Physical Exam:
Physical Exam
General: 89 female looks uncomfortable normal mental status
Neck: No tongue bite no posterior neck
Heart: s1/s2 regular rate and rhythm, no murmur. equal radial pulses.
Lungs: no acute respiratory distress. clear bilaterally
Abdomen: Nontender
Neuro: alert and oriented. no focal neurological deficits
Skin: no rash
Psychiatric: well kept. interactive and cooperative
Extremities: Tender with range of motion of the left hip, subacute looking healing wound to the right
Injury Course
Orders/Labs/Results
Orders:
Orders
01/08/25 16:17
CR Femur - Left Min 2 Vw Stat
Comment:
Reason For Exam: pain
CR Knee - Left 1 Or 2 Views Stat
Reason For Exam: pain
CR Pelvis - 1 Or 2 Views Stat
Reason For Exam: pain
Sacrum/Coccyx 2 View CR [CR Sacrum/coccyx Min 2 View] Stat
Comment:
Reason For Exam: pain
01/08/25 17:23
Electrocardiogram (*1) Urgent
Reason for Study: Other
Other Reason for Exam: trauma
CT Pelvis W/o Iv Contrast Urgent
Comment:
Reason For Exam: LEFT HIP PAIN
Cardiac Monitoring- Treatment ONCE
EKG- Treatment ONCE
0.9% Sodium Chloride 500 ml [Nss] 500 ml IV BOLUS
HYDROmorphone [Dilaudid] 0.5 mg IV NOW STA
Ondansetron Injectable [Zofran] 4 mg IV NOW STA
01/08/25 18:06
HYDROmorphone [Dilaudid] 1 mg IV NOW STA
01/08/25 18:16
Alcohol Urgent
Complete Blood Count/With Diff Urgent
Comprehensive Metabolic Panel Urgent
01/08/25 18:50
PTT Urgent
Prothrombin Time Urgent
01/08/25 19:09
Ondansetron Injectable [Zofran] 4 mg IV NOW STA
Abnormal Lab Results
01/08/25 01/08/25
18:16 18:50
RBC 3.37 L 10^6/uL
(4.20-5.40)
Hgb 10.7 L g/dL
(12.0-16.0)
Hct 31.2 L %
(37.0-47.0)
MCH 31.8 H pg
(27.0-31.0)
Absolute Neuts (auto) 7.1 H 10^3/uL
(1.4-6.5)
Absolute Lymphs (auto) 0.6 L 10^3/uL
(1.2-3.4)
Absolute Monos (auto) 0.7 H 10^3/uL
(0.1-0.6)
Neutrophils % 83.7 H %
(42.2-75.2)
Lymphocytes % 7.3 L %
(20.5-51.1)
PT 15.4 H Sec
(11.4-14.6)
Potassium 3.4 L mmol/L
(3.5-5.1)
Chloride 110 H mmol/L
(98-107)
Creatinine 0.4 L mg/dL
(0.6-1.0)
Calcium 7.4 L mg/dl
(8.4-10.2)
Total Protein 5.1 L g/dl
(6.3-8.2)
Albumin 3.1 L g/dl
(3.5-5.0)
01/08/25 18:16
01/08/25 18:16
MDM/Problems Addressed
Differential Diagnosis Includes:
Hip fracture pelvic fracture contusion strain
MDM/Problems Addressed:
Hip pain
Chronic conditions affecting care:
Blood thinners prior knee repair
Chronic conditions affecting care: Arrhythmia
Acute Exacerbation and/or Progression of Chronic Illness:
Blood thinner prior knee replacement
Acute Exacerbation and/or Progression of Chronic Illness: Arrhythmia
*Radiology
Radiology exam reviewed: preliminary read by ED provider
*Pulse Oximetry
Patient hypoxic: no
*EKG
Interpreted by ED Provider?: Yes
Interpretation: abnormal
Comparison EKG: no comparison EKG present
Heart Rate: 78
Rate: normal
Rhythm: sinus
Ischemia: non-specific ST changes
*Dental Ceramist Assistant Interpretation
Rate: normal
Interpretation: normal
Heart Rate: 78
Rhythm: sinus
*Critical Care Note
Total Time (30-74mins, 75-104mins- exclusive of procedures): Not Applicable
Update Note
Update Note:
Update, x-rays noted question of impacted femoral head fracture to my eye, which would fit clinically we will check Noncon CT to confirm try to get her comfortable
CT reviewed with radiology positive fracture reviewed with hospitalist orthopedist daughter patient will be admitted
ED Attending Note
-
Portions of this chart may have been created with voice recognition software.� Occasional wrong word or��sound alike� substitutions may have occurred due to the inherent limitations of voice recognition software.
Discharge Plan
Departure
Patient Disposition: Admit
Date of Disposition: 01/08/25
Time of Disposition: 20:00
Admit to: Med/Surg
Presentation/result/management discussed w/ accepting MD/DO: Hospitalist
Patient with high blood pressure during this ER visit?: No
Condition: Fair
Discharge Problem:
Closed hip fracture
Prescriptions:
No Action
atorvastatin 20 mg Tablet
20 mg PO HS
calcium carbonate-mag hydroxid 550-110 mg Tablet,Chewable
2 tab PO Q6HPRN PRN (Reason: stomach problems)
tramadol 50 mg Tablet
100 mg PO DAILY
tramadol 50 mg Tablet
75 mg PO HS
Eliquis 5 mg Tablet
5 mg PO BID
ondansetron HCl 4 mg tablet
4 mg PO HS
Patient Comments:
02/26/24: to take every night while on Famciclovir
acetaminophen [Tylenol Extra Strength] 500 mg tablet
1,000 mg PO Q8HPRN PRN (Reason: mild pain)
valacyclovir 500 mg Tablet
1,000 mg PO TID 8 Days Qty: 48 0RF
gabapentin 100 mg Capsule
100 mg PO BID@0800,1600 Qty: 60 0RF
gabapentin 100 mg Capsule
200 mg PO HS Qty: 60 0RF
polyethylene glycol 3350 17 gram/dose powder
17 g PO BID Qty: 510 0RF
bisacodyl 10 mg suppository
10 mg PA DAILY PRN (Reason: Constipation) Qty: 30 0RF
bisacodyl [Dulcolax (bisacodyl)] 5 mg Tablet,Delayed Release (Dr/Ec)
10 mg PO HS Qty: 0 0RF
Referrals:
Lexus Woods MD [Family Provider, Internal Medicine]
Interventions
Interventions:
*Risk Screen - Suicide Last Done: 01/08/25 16:14
*General Assessment Last Done: 01/08/25 17:20
*Neglect/Abuse Screening Last Done: 01/08/25 16:14
*ED- Fall Risk Assessment Last Done: 01/08/25 17:20
*ED COVID-19 Vaccine History Last Done: 01/08/25 17:20
ED-Musculoskeletal Assessment Last Done: 01/08/25 18:10
Discharge Date and Time
Print Language: FAROESE
[2025-01-08] MEDS: DILAUDID 1 MG IV ×2 (18:09→21:43)
[2025-01-08 18:22] LABS: % Basophils 0.4 % (0-2); % Eosinophils 0.1 % (0-6); % Immature Granulocytes 0.4 % (0-0.5); % Lymphocytes 7.3 % (20.5-51.1); % Monocytes 8.1 % (1.7-9.3); % Neutrophils 83.7 % (42.2-75.2); Absolute Lymphocytes 0.6 10^3/uL (1.2-3.4); Absolute Monocytes 0.7 10^3/uL (0.1-0.6); Absolute Neutrophils 7.1 10^3/uL (1.4-6.5); Hematocrit 31.2 % (37.0-47.0); Hemoglobin 10.7 g/dL (12.0-16.0); Mean Corp Hgb Conc. 34.3 g/dL (33.0-37.0); Mean Corpuscular Hgb 31.8 pg (27.0-31.0); Mean Corpuscular Volume 92.6 fL (81.0-99.0); Mean Platelet Volume 8.5 fL (7.4-10.4); Nucleated Red Blood Cells % 0 %; Platelet Count 195 10^3/uL (130-400); Red Blood Cell Count 3.37 10^6/uL (4.20-5.40); Red Cell Dist. Width 12.6 % (11.5-14.5); White Blood Cell Count 8.5 10^3/uL (4.8-10.8)
--- NOTE | 2025-01-08 18:28 | EDRN ---
S/p analgesic administration, pt.'s RA pulse ox. dropped to 88%, pt. denies shortness of breath, but does say 'Oh, I think I'm taking shallow breaths'. Pt. placed on 2L NC, pulse ox. now 97%.
[2025-01-08 18:37] LABS: ALT (SGPT) 16 U/L (0-35); AST (SGOT) 25 U/L (14-36); Albumin 3.1 g/dl (3.5-5.0); Alkaline Phosphatase 56 U/L (38-126); Blood Urea Nitrogen 13 mg/dl (7-17); Calcium 7.4 mg/dl (8.4-10.2); Carbon Dioxide 22 mmol/L (22-30); Chloride 110 mmol/L (98-107); Glucose 71 mg/dl (70-99); Potassium 3.4 mmol/L (3.5-5.1); Sodium 137 mmol/L (135-145); Total Bilirubin 0.6 mg/dl (0.2-1.3); Total Protein 5.1 g/dl (6.3-8.2); eGFR > 60.00
[2025-01-08 18:38] LABS: Alcohol None Detected
[2025-01-08 19:08] LABS: INR 1.19; PT 15.4 Sec (11.4-14.6)
[2025-01-08 19:09] LABS: APTT 33.5 Sec (23.4-35.0)
--- NOTE | 2025-01-08 19:28 | HPS.HSE ---
Addendum entered and electronically signed by DARON Tom 01/08/25 22:50:
Patient requested code status be changed to Full Code, order entered to change.
Addendum entered and electronically signed by Aamir Crum DO 01/08/25 21:15:
Patient seen and examined independently. Agree with findings and plan as set forth by DARON Tom.
Patient is an 89y F with PMH significant for paroxysmal A-Fib on Eliquis who presents to ED for evaluation of L hip pain s/p fall at home. Patient states that she had a [id number] at home this afternoon. She was able to get up with some
difficulty and sat visiting with family for about 2 hours before she elected to present to the ED for further evaluation. Patient complains of pain in the L hip since the fall. She denies any other recent complaints including fevers / chills,
cough, chest pain, etc.
Ass:
Left Hip Fracture
Mechanical Fall at Home
Paroxysmal Atrial Fibrillation
Prior TIA
GERD / Esophageal Stricture
Plan:
Admit for further evaluation and treatment.
Patient discussed options with Ortho in the ED and has elected for L VIKKI with spinal anesthesia.
As such, Eliquis will need to be held for full 3 days prior to surgery.
Tentative plan for OR on Saturday afternoon.
Supportive care / pain control in the interim.
Original Note:
Family Physician
-
Family Physician: Lexus Woods
Chief Complaint
-
mechanical fall
History of Present Illness
Patient is a 89-year-old female with past medical history significant for paroxysmal atrial fibrillation on Eliquis, esophageal stricture with dysphagia, TIA, hypertension, hyperlipidemia and osteoarthritis status post recent right knee replacement
who presented to [facility] ED for evaluation status post mechanical fall. Patient reports leaning over to grab an item when she fell and landed on left hip, she reports pain instantly. She was unable to get off of floor initially. She did scoot herself
to living room where she utilized loveseat for assistance and was able to get up off of floor. After several hours of discomfort patient came for evaluation. Patient denies any recent illness, fever, chills, cough, shortness of breath, chest pain,
nausea, vomiting, constipation, diarrhea or urniary symptoms.
Medical History
Past Medical History
Past Medical History: Reports Other
Additional Past Medical History:
Osteoarthritis.
Hypertension.
Hyperlipidemia.
Aortic atherosclerosis.
Paroxysmal atrial fibrillation, status post pulmonary vein isolation 2017; oral anticoagulation with Eliquis.
PACs.
Mild valvular disease.
Venous varicosities.
TIA, 08/2022, without residual side effects.
GERD.
Hiatal hernia.
Esophageal stricture with dysphagia, status post dilation x2.
Colon polyps.
Diverticulosis.
Nephrolithiasis.
Right spigelian hernia.
Ocular migraines.
Benign thyroid nodules.
Left breast cancer, 2019, status post left lumpectomy and radiation.
Basal and squamous cell carcinoma, status post recurrent excision.
COVID-19 08/2023 without residual side effects.
Osteopenia.
Tinnitus.
Mild hyponatremia.
Mildly elevated AST.
Remote history of tobacco abuse.
Psoriasis
Recent biceps femoris strain .
Past Surgical History: Reports Other
Additional Past Surgical History:
Right total knee arthroplasty
Basal cell and squamous cell carcinoma excision
Left breast lumpectomy, oophorectomy, cardiac ablation, right inguinal hernia repair
Social History
Tobacco: Former Smoker
Alcohol: Daily
Drug: None
Personal: Single
Living: Alone
Employment: Retired
Family History
Family History: Not pertinent
Allergies / Home Medications
Allergies reflects when Allergies were last updated in [employer].
Home Medications with original date entered in [employer]
Allergy/Medication List:
Allergies
Allergy/AdvReac Type Severity Reaction Status Date / Time
aluminum Allergy Unknown; Verified 01/08/25 16:14
per PCP
clearance
ciprofloxacin (From Cipro) Allergy achilles Verified 01/08/25 16:14
pain/
swelling
nickel Allergy Unknown; Verified 01/08/25 16:14
per PCP
clearance
Home Medications
atorvastatin 20 mg tablet 20 mg PO HS High Cholesterol 07/29/23
acetaminophen 500 mg tablet (Tylenol Extra Strength) 1,000 mg PO Q8HPRN PRN mild pain 02/26/24
apixaban 5 mg tablet (Eliquis) 5 mg PO BID Blood Clot Prevention/Tx 02/26/24
magnesium oxide 250 mg PO BID 01/08/25
omeprazole 40 mg capsule,delayed release 40 mg PO DAILY 01/08/25
Review of Systems
-
History Source: Patient
Abdomen/GI: Reports Nausea (after getting pain medication )
Musculoskeletal: Reports Joint Pain (left hip pain )
Physical Exam
Vital Signs
Vital Signs
Temp Pulse Resp BP Pulse Ox
97.8 F 80 15 153/75 95
01/08/25 16:14 01/08/25 19:00 01/08/25 19:00 01/08/25 19:00 01/08/25 19:00
Physical Exam
General: Well Developed, Well Nourished and No Apparent Distress
HEENT: NormoCephalic, Moist mucous membranes and Atraumatic
Respiratory: Clear
Cardiac: S1/S2 and Regular Rhythm
Breast: Deferred by me
GI: Soft, Non Tender, Non Distended and Normal Bowel Sounds
Rectal: Deferred by Provider
Genito-urinary: Deferred by me
Musculoskeletal: No Clubbing, No Cyanosis, No Edema and Other (tenderness with ROM to left hip)
Skin: IV/Catheter Site
Neuro: Awake, Alert, AO x 3 and Nonfocal/grossly intact
Psych: Calm and Intact Judgment/Insight
Laboratory Results
-
01/08/25 18:16
01/08/25 18:16
Laboratory Results
PT 15.4 Sec (11.4-14.6) H 01/08/25 18:50
INR 1.19 01/08/25 18:50
APTT 33.5 Sec (23.4-35.0) 01/08/25 18:50
Total Bilirubin 0.6 mg/dl (0.2-1.3) 01/08/25 18:16
AST 25 U/L (14-36) 01/08/25 18:16
ALT 16 U/L (0-35) 01/08/25 18:16
Alkaline Phosphatase 56 U/L (38-126) 01/08/25 18:16
Data Reviewed
-
Diagnostic Radiology: Report Reviewed by me
CT Scan: Report Reviewed by me (Pelvis: Acute mildly displaced subcapital left hip fracture. New from 10/22/2024 Mild bony demineralization. Stable. Moderate bilateral hip osteoarthritis. Stable. Diverticulosis. Stable Moderate fecal material in
the colon. Progressed)
Medical Tests (Nuc Med, Echo, EKG etc): Report Reviewed by me (EKG: NORMAL SINUS RHYTHM SEPTAL INFARCT , AGE UNDETERMINED)
Lab Data: Labs Reviewed by me (hgb 10.7, hct 31.2, Ca+ 7.4 (corrected to 8.1))
Impression/Plan
-
IMPRESSION/PLAN:
#mechanical fall
#Acute mildly displaced subcapital left hip fracture
EKG: NORMAL SINUS RHYTHM
SEPTAL INFARCT , AGE UNDETERMINED
Pelvis CT: Acute mildly displaced subcapital left hip fracture. New from 10/22/2024
Mild bony demineralization. Stable.
Moderate bilateral hip osteoarthritis. Stable.
Diverticulosis. Stable
Moderate fecal material in the colon. Progressed
- Admit to med/surg
- Consult ortho
- hold Eliquis
- pain regimen
- supportive care
#anemia
hgb 10.7, hct 31.2
- hgb down from 13.7 in 04/2024
- anemia workup studies
#hypocalcemia
Ca+ 7.4 (corrected to 8.1)
- replete with Calcium Gluconate 1gm now
- follow BMP and replete as indicated
#paroxysmal atrial fibrillation
EKG: NORMAL SINUS RHYTHM
SEPTAL INFARCT , AGE UNDETERMINED
- hold Eliquis, Last dose 01/08/2025 0830
#hyperlipidemia
- continue atorvastatin
#esophageal stricture with dysphagia
#GERD
- continue omeprazole
#osteoarthritis
status post recent right knee replacement
- continue PRN acetaminophen
#TIA
#hypertension
Code status: DNR
DVT prophylaxis: SCDs
--- NOTE | 2025-01-08 20:42 | CON.ORTHO ---
Consultation
-
Date/Time Consultation Requested: 01/08/2025 @ 20:40
Date/Time Consultation Performed: 01/08/2025 @ 20:45
Requesting Provider: Dr. Charles Malcolm DO
Performing Provider: Melvin Ayala PA-C and Dr. Charles Patterson MD
Reason for Consultation: Left Hip Fracture
Consultation - Orthopedics
History
Orthopedic Surgery Note
CC: Left Hip Pain s/p Mechanical Fall
HPI: The patient is an 89-year-old female with a PMH significant for Paroxysmal Atrial Fibrillation on Eliquis (last dose this morning), Esophageal stricture with dysphagia, GERD, TIA, Hypertension, Hyperlipidemia, Shingles, TIA, Breast cancer s/p
lumpectomy, Basal cell cancer, Squamous cell cancer, and Osteoarthritis s/p R TKA (11/28/2023) with Dr. Dixon, who presented to ED for evaluation after sustaining a mechanical fall earlier today. She reports that she was leaning over to grab an
item when she fell and landed on her left hip. She reports immediate onset of left hip pain. She reports that she was able to move herself to the living room where she utilized a loveseat for assistance and was able to get up off the floor. After
several hours of discomfort, she presented to the ED for further evaluation. X-rays were obtained and revealed findings concerning for an impacted left femoral neck fracture. Orthopedic surgery was consulted for further management and treatment
recommendations moving forward. She denies any paresthesias. She ambulates with assistance of a walker/cane. She lives in a two-story home with a stair lift.
PMH/PSH: PAF on Eliquis (last dose this morning), Esophageal stricture with dysphagia s/p dilation x2, GERD, TIA, Hypertension, Hyperlipidemia, Shingles, TIA, Breast cancer s/p lumpectomy, Basal cell cancer, Squamous cell cancer, Osteoarthritis s/p
R TKA, Diverticulosis, Nephrolithiasis, Osteopenia.
Medications: Reviewed.
Family History: Family history was reviewed. Noncontributory.
Social history: Former smoker, no illicit drugs.
Exam
General appearance: Pleasant. No acute distress.
Head: Normocephalic/atraumatic
Nose: No lesions or discharge.
Skin: No obvious rashes or open wounds
Lungs: No audible wheezing, no cough or sputum production
Musculoskeletal:
Direct examination of the left lower extremity reveals leg shortened and slightly externally rotated. (+) TTP about the left hip/lateral thigh. Compartments are soft and compressible. (+) Logroll. Calf is soft and nontender to palpation. Able to
dorsiflex and plantarflex left ankle. NVI distally.
Imaging:
Plain radiographs of the LEFT femur, including 4 views, was obtained at [facility] on 01/08/2025 and was made available for my review today. There is an acute mildly displaced subcapital impacted left hip fracture. There is also advanced
left knee osteoarthritis with [id number] arthrosis about the lateral compartment.
Plain radiographs of the LEFT knee, including 2 views, was obtained at [facility] on 01/08/2025 and was made available for my review today. There is advanced left knee osteoarthritis with cqet-ok-[id number] arthrosis about the lateral
compartment. I do not appreciate any evidence for acute displaced fracture or dislocation. X-rays appear without obvious change in comparison to office x-rays from 10/23/2022.
Plan radiographs, including an AP pelvis view, was obtained at [facility] on 01/08/2025 and was made available for my review today. There is an acute mildly displaced subcapital impacted left hip fracture. Moderate bilateral hip
osteoarthritis. Lumbar spine degenerative joint disease.
CT Pelvis W/o Iv Contrast was performed at [facility] on 01/08/2025 with me available for my review today. Findings: There is an acute subcapital left hip fracture. There is mild impaction. No additional acute fractures are noted. There
is mild diffuse joint space narrowing of both hip joints as well as mild acetabular sclerosis consistent with osteoarthritis. There is mild bony demineralization. There is mild patient motion artifact. There is moderate fecal material in the
colon. There is mild diverticulosis. There is severe arthrosclerotic valvular disease. Impression: Acute mildly displaced subcapital left hip fracture. New from 10/22/2024. Mild bony demineralization. Stable. Moderate bilateral hip
osteoarthritis. Stable. Diverticulosis. Stable. Moderate fecal material in the colon. Progressed.
Assessment: 89-year-old female (PAF on Eliquis; last dose this AM) with a LEFT mildly displaced subcapital impacted hip fracture in the face of moderate osteoarthritis.
Plan: Unfortunately, the patient has sustained a left hip fracture. We discussed the treatment options today, and after thorough discussion, shared decision was to proceed with LEFT total hip arthroplasty. The risks, benefits, potential
complications, and expected post-operative course were reviewed. We will plan to proceed with surgery on Saturday afternoon/evening 01/11/2025 under the direction of Dr. Patterson to allow for Eliquis washout. Surgical and blood consents obtained and
scanned into patient's chart. Ancef, iodine irrigation, and TXA irrigation on-call to the OR. The patient will be NPO pMN 01/10/2025. Remain NWB to LLE until post-op. She is to remain bedrest for now. Continue with pain medications as needed.
Type and screen requested. Left hip marked as the correct surgical extremity. Hemoglobin 10.7. Please hold pharmacological DVT prophylaxis until post-op. Orthopedic surgery will continue to follow along.
Patient seen and evaluated in tandem with Dr. Patterson.
Allergies / Home Medications
Allergy/AdvReac Type Severity Reaction Status Date / Time
aluminum Allergy Unknown; Verified 01/08/25 16:14
per PCP
clearance
ciprofloxacin (From Cipro) Allergy achilles Verified 01/08/25 16:14
pain/
swelling
nickel Allergy Unknown; Verified 01/08/25 16:14
per PCP
clearance
�Medication �Instructions �Recorded
atorvastatin 20 mg tablet 20 mg PO HS High Cholesterol 07/29/23
acetaminophen 500 mg tablet 1,000 mg PO Q8HPRN PRN mild pain 02/26/24
(Tylenol Extra Strength)
apixaban 5 mg tablet (Eliquis) 5 mg PO BID Blood Clot 02/26/24
Prevention/Tx
magnesium oxide 250 mg PO BID 01/08/25
omeprazole 40 mg capsule,delayed 40 mg PO DAILY 01/08/25
release
Vital Signs / Lab Results
Temp Pulse Resp BP Pulse Ox
97.8 F 81 18 143/71 96
01/08/25 16:14 01/08/25 20:30 01/08/25 20:30 01/08/25 20:00 01/08/25 20:30
01/08/25 18:16
01/08/25 18:16
[2025-01-08] MEDS: CALCIUM GLUCONATE 100 IV (21:43)
[2025-01-09 00:20] VITALS: BP 143/61; BMI 23.1
--- NOTE | 2025-01-09 01:04 | PTCARENOTE ---
Pt adm to unit @ 0030 from ED, family w friend with pt, WILFRED, on 2L O2 for sats of 89 RA when off. Pt reports pain /10 @ rest 7/10 with movement. Pt AAOx3 alble to make needs known, pleasant and cooperative. Pt oreinted to plan of care, hospital
policies and room. Call pedro within reach.
[2025-01-09] MEDS: LIPITOR 20 MG PO ×2 (01:11→22:42)
[2025-01-09] MEDS: PROTONIX 40 MG PO (01:11)
[2025-01-09] MEDS: DILAUDID 0.5 MG IV ×7 (01:17→22:42)
[2025-01-09] MEDS: ZOFRAN 4 MG IV ×2 (04:36→22:54)
[2025-01-09 05:15] VITALS: BMI 23.1
[2025-01-09 07:10] VITALS: BP 133/65
--- NOTE | 2025-01-09 07:14 | W.PN.HOSP.TC ---
Today's Communication/Plan
-
see a/p
Assessment / Plan
Assessment / Plan
Physical Exam
General: no acute distress appears comfortable at this time
HEENT: NormoCephalic, Moist mucous membranes and Atraumatic
Respiratory: Clear on 2L
Cardiac: S1/S2 and Regular Rhythm
GI: Soft, Non Tender, Non Distended and Normal Bowel Sounds
Genito-urinary: Deferred by me
Musculoskeletal: No Clubbing, No Cyanosis, No Edema, left leg abducted, left hip tenderness
Skin: IV/Catheter Site
Neuro: AOx3 conversant coherent
Psych: Calm
89F pAfib Eliquis Esophageal Stricture TIA HTN HLD here for left hip fracture following mechanical fall.
#mechanical fall
#Acute mildly displaced subcapital left hip fracture
Pelvis CT: Acute mildly displaced subcapital left hip fracture. New from 10/22/2024
Mild bony demineralization. Stable.
Moderate bilateral hip osteoarthritis. Stable.
Diverticulosis. Stable
Moderate fecal material in the colon. Progressed
- Consult ortho appreciated tentative plan for OR Thursday 01/11 following ELiquis washout
- Cardio eval requested pre-op risk stratification
- hold Eliquis
- pain regimen prn Dilaudid, scheduled Tylenol, Lidocaine patches
- supportive care
#anemia
monitor H&H, no transfusion necessary at this time.
Iron studies wnl
B12 Folate non-deficient
#hypocalcemia
monitor and replete as necessary
#paroxysmal atrial fibrillation
- hold Eliquis, Last dose 01/08/2025 0830
#hyperlipidemia
- continue atorvastatin
#esophageal stricture with dysphagia
#GERD
- continue omeprazole
#osteoarthritis
status post recent right knee replacement
pain control
#TIA
#hypertension
Code status: DNR
DVT prophylaxis: SCDs
Discussed with patient and patient's daughter Keek (local funeral home director)
I spent a total of 50 minutes with the patient or on the floor. More than 50% of this time involved counseling and coordination of care.
Anticipated Discharge: > 48 hours
Subjective/Interval History
-
Date of Service: January 09, 2025
Seen and examined at bedside in no acute distress resting comfortably in bed. Pain relatively well controlled with current pain regimen
Objective Data
-
Labs:
Laboratory Results
01/08/25 01/09/25
18:50 05:27
WBC Pending
Hgb Pending
Hct Pending
Plt Count Pending
PT 15.4 H
INR 1.19
APTT 33.5
Sodium Pending
Potassium Pending
Chloride Pending
Carbon Dioxide Pending
BUN Pending
Creatinine Pending
Glucose Pending
Calcium Pending
Vital Signs:
Vital Signs
Temp Pulse Resp BP Pulse Ox
98.0 F 83 16 143/61 94
01/09/25 00:20 01/09/25 00:20 01/09/25 00:20 01/09/25 00:20 01/09/25 00:20
[2025-01-09 07:18] LABS: Hematocrit 34.1 % (37.0-47.0); Hemoglobin 11.2 g/dL (12.0-16.0); Mean Corp Hgb Conc. 32.8 g/dL (33.0-37.0); Mean Corpuscular Hgb 31.4 pg (27.0-31.0); Mean Corpuscular Volume 95.5 fL (81.0-99.0); Mean Platelet Volume 9.3 fL (7.4-10.4); Platelet Count 209 10^3/uL (130-400); Red Blood Cell Count 3.57 10^6/uL (4.20-5.40); Red Cell Dist. Width 12.8 % (11.5-14.5)
[2025-01-09 07:55] LABS: Blood Urea Nitrogen 14 mg/dl (7-17); Calcium 8.8 mg/dl (8.4-10.2); Carbon Dioxide 25 mmol/L (22-30); Chloride 104 mmol/L (98-107); Estimated Creatinine Clearance 58 ml/min; Glucose 89 mg/dl (70-99); Iron 63 ug/dl (37-170); Potassium 4.4 mmol/L (3.5-5.1); Sodium 135 mmol/L (135-145); eGFR > 60.00
[2025-01-09 08:06] LABS: Percent Saturation 21 % (20-50); Total Iron Binding Capacity 298 ug/dl (265-497)
[2025-01-09] MEDS: MAGNESIUM OXIDE 250 MG PO ×2 (08:57→19:33)
[2025-01-09] MEDS: PROTONIX PO (09:02)
[2025-01-09 09:12] LABS: Ferritin 51.6 ng/ml (11.1-264.0)
--- NOTE | 2025-01-09 09:17 | W.PN.UPDATE ---
Update Note
Progress Note Update
Patient seen and examined on rounds this morning. Plan for LEFT Total Hip Arthroplasty under the direction of Dr. Patterson Saturday01/11/2025. Surgical and blood consents obtained and scanned into patient's chart. Ancef, iodine irrigation, and TXA
irrigation OCTOR. NPO pMN 01/10/2025. Remain NWB to LLE until post-op. T&S completed. Hgb this AM 11.2. Please hold pharmacological DVT prophylaxis until post-op. Orthopedic surgery will continue to follow along.
[2025-01-09 09:43] LABS: Folate > 20.0 ng/ml (2.76-20); Vitamin B12 429 pg/ml (239-931)
--- NOTE | 2025-01-09 11:27 | CON.CAR ---
Consultation
Consultation Request
Date/Time Consultation Requested: January 09, 2025
Date/Time Consultation Performed: January 09, 2025
Requesting Provider: Hospitalist service
Performing Provider: Dr Dago Moe
Reason for Consultation: Preoperative cardiac risk assessment
Medical History
-
Chief Complaint: Left hip pain status post fall. Diagnosed with left hip fx plan for OR
History of Present Illness:
She presented to ED for evaluation of L hip pain s/p mechanical fall at home without dizziness or LOC. She is diagnosed with acute subcapital left hip fracture with mild impaction.
She is planned for surgical repair on Saturday, January 11, 2025.
Preoperative cardiac risk assessment is requested
She has history of paroxysmal atrial fibrillation and is chronically anticoagulated on Eliquis 2.5 mg twice daily, suspected remote TIA (negative brain MRI), hypertension, dyslipidemia, TIA, basal cell and squamous cell cancer, osteoarthritis status
post right total knee arthroplasty in November 2023.
She tells me prior to the fall she has been feeling quite well. She is experienced no exertional chest pain or shortness of breath. No dizziness near syncope or syncope. No palpitations.
She was able to climb a flight of stairs without stopping.
Echocardiogram November 28, 2022 finds normal left ventricular size and function ejection fraction of 60%, mildly dilated left atrium, mild mitral regurgitation.
Past medical history
Paroxysmal atrial fibrillation
PVI 2016, eventually after there were no documented recurrences of atrial fibrillation, Eliquis was discontinued but then resumed after her suspected TIA
Possible TIA in early 2022. MRI of the brain October 2022 revealed chronic changes and no acute stroke.
Given the possible TIA she was placed back on Eliquis which had previously been stopped after her PVI.
She has been maintained on Eliquis 2.5 mg twice daily (dose reduced based on age and weight)
Hypertension
Dyslipidemia
Esophageal stricture and dysphagia, gastroesophageal reflux disease
Breast cancer status postlumpectomy
History of basal cell as well as history of squamous cell carcinoma
Social History
Tobacco: Former Smoker
Alcohol: Daily
Drug: None
Personal: Single
Living: Alone
Employment: Retired
Family History
Family History: Reviewed & Not Pertinent
Allergies / Home Medications
Allergy/AdvReac Type Severity Reaction Status Date / Time
aluminum Allergy Unknown; Verified 01/08/25 16:14
per PCP
clearance
ciprofloxacin (From Cipro) Allergy achilles Verified 01/08/25 16:14
pain/
swelling
nickel Allergy Unknown; Verified 01/08/25 16:14
per PCP
clearance
�Medication �Instructions �Recorded �Confirmed �Type
atorvastatin 20 mg tablet 20 mg PO HS High Cholesterol 07/29/23 01/08/25 History
acetaminophen 500 mg tablet 1,000 mg PO Q8HPRN PRN mild pain 02/26/24 01/08/25 History
(Tylenol Extra Strength)
apixaban 5 mg tablet (Eliquis) 5 mg PO BID Blood Clot 02/26/24 01/08/25 History
Prevention/Tx
magnesium oxide 250 mg PO BID Supplement 01/08/25 01/08/25 History
omeprazole 40 mg capsule,delayed 40 mg PO DAILY Gastrointestinal 01/08/25 01/08/25 History
release Issue
Review of Systems
-
History Source: Patient
All other systems: Negative unless noted
Constitutional: No Symptoms
EENT: No Symptoms
Respiratory: No Symptoms
Cardiac: No Symptoms
Abdomen/GI: No Symptoms
: No Symptoms
Musculoskeletal: Joint Pain (Left hip pain)
Skin: No Symptoms
Neurological: No Symptoms
Physical Exam
Vital Signs
Temp Pulse Resp BP Pulse Ox
99.2 F 77 16 133/65 94
01/09/25 07:10 01/09/25 07:10 01/09/25 07:10 01/09/25 07:10 01/09/25 00:20
Lab Results
01/09/25 05:27
01/09/25 05:27
Physical Exam
General: Well Developed, Well Nourished, No Apparent Distress and Comfortable
HEENT: Normocephalic, Anicteric and Moist Mucous Membranes
Respiratory: Clear and Non Labored Respirations
Cardiac: S1/S2 (No S3, no S4, there is a grade 1/6 apical holosystolic murmur no rubs PMI is normally placed) and Regular Rhythm
Breast: Deferred by me
GI: Soft, Non Tender, Non Distended and Normal Bowel Sounds
Rectal: Deferred by Provider
Musculoskeletal: No Clubbing, No Cyanosis and No Edema
Skin: Warm and Dry
Neuro: Awake, Alert, Oriented and AO x 3
Psych: Calm
Impression / Plan
-
Assessment/Plan:
Left hip fracture after mechanical trip and fall
Paroxysmal atrial fibrillation
PVI 2016, eventually after there were no documented recurrences of atrial fibrillation, Eliquis was discontinued but then resumed after her suspected TIA
Possible TIA in early 2022. MRI of the brain October 2022 revealed chronic changes and no acute stroke.
Given the possible TIA she was placed back on Eliquis which had previously been stopped after her PVI.
She has been maintained on Eliquis 2.5 mg twice daily (dose reduced based on age and weight)
Hypertension
Dyslipidemia
Esophageal stricture and dysphagia, gastroesophageal reflux disease
Breast cancer status postlumpectomy
History of basal cell as well as history of squamous cell carcinoma
EKG January 08, 2025 finds sinus rhythm cannot exclude septal infarct age undetermined. No significant changes from ECG May 08, 2024
Echocardiogram November 28, 2022 finds normal left ventricular size and function ejection fraction of 60%, mildly dilated left atrium, mild mitral regurgitation.
She is planned for surgical replacement of left hip fracture under spinal anesthesia on Saturday, January 11, 2025.
In general this is considered a low cardiac risk procedure.
Her specific risk going into any surgery includes her advanced age and prior suspected TIA. She is also chronically anticoagulated on Eliquis.
Overall I would consider her as not high cardiac risk for the planned surgery.
Recommendation would be to hold Eliquis for 48 to 72 hours prior to surgery
We then resume Eliquis once hemostasis is assured.
Check postoperative ECG.
Data Reviewed
-
EKG: Tracing Personally Visualized and interpreted
Radiology: Report Reviewed by me
Medical Tests (Nuc Med, Echo etc): Report Reviewed by me
Labs: Labs Reviewed by me
Old Records: Reviewed
[2025-01-09] MEDS: TYLENOL 650 MG PO ×2 (12:45→16:30)
[2025-01-09] MEDS: MIRALAX 17 GRAMS PO (12:45)
[2025-01-09] MEDS: LIDOCAINE 4% PATCH 2 PATCH TOPICAL (12:46)
--- NOTE | 2025-01-09 13:41 | PTCARENOTE ---
pt has home energy consultant supervisor in room at all times. Assist with minor ADL's such as washing and teeth, hair, setting up food, provides comfort for pt.
[2025-01-09 15:50] VITALS: BP 109/41
[2025-01-09] MEDS: NON-FORMULARY ITEM 1 UNIT PO (19:35)
[2025-01-09] MEDS: SENOKOT-S 1 TABLET PO (19:36)
[2025-01-09] MEDS: TYLENOL PO (20:00)
[2025-01-09 23:35] VITALS: BP 116/54
[2025-01-10] MEDS: TYLENOL PO ×2 (00:04→04:46)
[2025-01-10] MEDS: DILAUDID 0.5 MG IV ×5 (02:44→22:01)
[2025-01-10 06:54] LABS: Hematocrit 33.9 % (37.0-47.0); Hemoglobin 11.2 g/dL (12.0-16.0); Mean Corpuscular Hgb 31.8 pg (27.0-31.0); Mean Corpuscular Volume 96.3 fL (81.0-99.0); Mean Platelet Volume 9.3 fL (7.4-10.4); Platelet Count 183 10^3/uL (130-400); Red Blood Cell Count 3.52 10^6/uL (4.20-5.40); Red Cell Dist. Width 12.6 % (11.5-14.5); White Blood Cell Count 8.4 10^3/uL (4.8-10.8)
--- NOTE | 2025-01-10 06:59 | W.PN.HOSP.TC ---
Today's Communication/Plan
-
pain control
NPO after midnight for Lt hip VIKKI
bisacodyl, laxatives prn
Assessment / Plan
Assessment / Plan
Physical Exam
General: no acute distress appears comfortable at this time
HEENT: NormoCephalic, Moist mucous membranes and Atraumatic
Respiratory: Clear on 2L
Cardiac: S1/S2 and Regular Rhythm
GI: Soft, Non Tender, Non Distended and Normal Bowel Sounds
Genito-urinary: Deferred by me
Musculoskeletal: No Clubbing, No Cyanosis, No Edema, left leg abducted, left hip tenderness
Skin: IV/Catheter Site
Neuro: AOx3 conversant coherent
Psych: Calm
89F pAfib Eliquis Esophageal Stricture TIA HTN HLD here for left hip fracture following mechanical fall.
#mechanical fall
#Acute mildly displaced subcapital left hip fracture
Pelvis CT: Acute mildly displaced subcapital left hip fracture. New from 10/22/2024
Mild bony demineralization. Stable.
Moderate bilateral hip osteoarthritis. Stable.
Diverticulosis. Stable
Moderate fecal material in the colon. Progressed
- Consult ortho appreciated tentative plan for OR Thursday 01/11 following ELiquis washout
- Cardio eval appreciated considered not high cardiac risk for planned surgery
- hold Eliquis
- pain regimen prn Dilaudid, scheduled Tylenol, Lidocaine patches
- supportive care
Constipation
-bisacodyl per patient request
-cont laxatives prn
#anemia
monitor H&H, no transfusion necessary at this time.
Iron studies wnl
B12 Folate non-deficient
#hypocalcemia
monitor and replete as necessary
#paroxysmal atrial fibrillation
- hold Eliquis, Last dose 01/08/2025 0830
#hyperlipidemia
- continue atorvastatin
#esophageal stricture with dysphagia
#GERD
- continue omeprazole
#osteoarthritis
status post recent right knee replacement
pain control
#TIA
#hypertension
Code status: DNR
DVT prophylaxis: SCDs
Discussed with patient and patient's daughter Keke (local home care scheduler)
I spent a total of 45 minutes with the patient or on the floor. More than 50% of this time involved counseling and coordination of care.
Anticipated Discharge: > 48 hours
Subjective/Interval History
-
Date of Service: January 10, 2025
No acute distress, constipation persists. Otherwise pain well controlled with current pain regimen
Objective Data
-
Labs:
Laboratory Results
01/10/25
05:26
WBC 8.4
Hgb 11.2 L
Hct 33.9 L
Plt Count 183
Sodium Pending
Potassium Pending
Chloride Pending
Carbon Dioxide Pending
BUN Pending
Creatinine Pending
Glucose Pending
Calcium Pending
Vital Signs:
Vital Signs
Temp Pulse Resp BP Pulse Ox
98.6 F 77 16 116/54 94
01/09/25 23:35 01/09/25 23:35 01/09/25 23:35 01/09/25 23:35 01/09/25 23:35
I&O
01/08/25 01/09/25 01/10/25
06:59 06:59 06:59
Intake Total 1640 / 1640
Balance 1640 / 1640
[2025-01-10 07:44] LABS: Blood Urea Nitrogen 11 mg/dl (7-17); Calcium 8.4 mg/dl (8.4-10.2); Carbon Dioxide 29 mmol/L (22-30); Chloride 100 mmol/L (98-107); Estimated Creatinine Clearance 58 ml/min; Glucose 110 mg/dl (70-99); Phosphorus 2.8 mg/dl (2.5-4.5); Potassium 3.9 mmol/L (3.5-5.1); Sodium 132 mmol/L (135-145); eGFR > 60.00
[2025-01-10 07:45] VITALS: BP 122/52
[2025-01-10] MEDS: LIDOCAINE 4% PATCH 2 PATCH TOPICAL (08:45)
[2025-01-10] MEDS: SENOKOT-S PO (08:47)
[2025-01-10] MEDS: TYLENOL 650 MG PO ×4 (08:48→21:22)
[2025-01-10] MEDS: MAGNESIUM OXIDE 250 MG PO ×2 (08:48→21:21)
[2025-01-10] MEDS: MIRALAX PO (08:49)
--- NOTE | 2025-01-10 08:54 | W.PN.UPDATE ---
Update Note
Progress Note Update
Patient seen by Orthopedic surgery on rounds this morning. Plan for LEFT Total Hip Arthroplasty under the direction of Dr. Patterson Saturday01/11/2025. Surgical and blood consents obtained and scanned into patient's chart. Ancef, iodine irrigation,
and TXA irrigation OCTOR. NPO pMN tonight 01/10/2025. Remain NWB to LLE until post-op. T&S completed. Hgb yesterday 11.2; this AM 11.2. Please hold pharmacological DVT prophylaxis until post-op. Patient cleared by Cardiology. Orthopedic surgery will
continue to follow along.
--- NOTE | 2025-01-10 10:44 | W.PN.CARDCBS ---
Today's Communication / Plan
-
Overall hemodynamically stable, stable cardiovascular status heading into left hip arthroplasty tomorrow.
We will follow postop
Eventually resume Eliquis
Impression / Plan
-
Assessment/Plan:
Left hip fracture after mechanical trip and fall
Paroxysmal atrial fibrillation
PVI 2016, eventually after there were no documented recurrences of atrial fibrillation, Eliquis was discontinued but then resumed after her suspected TIA
Possible TIA in early 2022. MRI of the brain October 2022 revealed chronic changes and no acute stroke.
Given the possible TIA she was placed back on Eliquis which had previously been stopped after her PVI.
She has been maintained on Eliquis 2.5 mg twice daily (dose reduced based on age and weight)
Hypertension
Dyslipidemia
Esophageal stricture and dysphagia, gastroesophageal reflux disease
Breast cancer status postlumpectomy
History of basal cell as well as history of squamous cell carcinoma
EKG January 08, 2025 finds sinus rhythm cannot exclude septal infarct age undetermined. No significant changes from ECG May 08, 2024
Echocardiogram November 28, 2022 finds normal left ventricular size and function ejection fraction of 60%, mildly dilated left atrium, mild mitral regurgitation.
She is planned for surgical replacement of left hip fracture under spinal anesthesia on Saturday, January 11, 2025.
In general this is considered a low cardiac risk procedure.
Her specific risk going into any surgery includes her advanced age and prior suspected TIA. She is also chronically anticoagulated on Eliquis.
She can be considered as not high cardiac risk for the planned surgery.
Recommendation would be to hold Eliquis for 48 to 72 hours prior to surgery
Resume Eliquis once hemostasis is assured.
Check postoperative ECG.
Progress Note - Barrel Cap Setter
Subjective
Date of Service: January 10, 2025
She is resting in bed, visiting with family and appears comfortable. She has no chest pain shortness of breath palpitations or dizziness
Objective
Labs:
01/10/25 05:26
01/10/25 05:26
Labs
Hgb 11.2 g/dL (12.0-16.0) L 01/10/25 05:26
Hct 33.9 % (37.0-47.0) L 01/10/25 05:26
Plt Count 183 10^3/uL (130-400) 01/10/25 05:26
PT 15.4 Sec (11.4-14.6) H 01/08/25 18:50
INR 1.19 01/08/25 18:50
APTT 33.5 Sec (23.4-35.0) 01/08/25 18:50
Sodium 132 mmol/L (135-145) L 01/10/25 05:26
Potassium 3.9 mmol/L (3.5-5.1) 01/10/25 05:26
BUN 11 mg/dl (7-17) 01/10/25 05:26
Creatinine 0.5 mg/dL (0.6-1.0) L 01/10/25 05:26
Glucose 110 mg/dl (70-99) H 01/10/25 05:26
Vital Signs and I&O:
Vital Signs
Temp Pulse Resp BP Pulse Ox
98.9 F 77 20 122/52 91
01/10/25 07:45 01/10/25 07:45 01/10/25 07:45 01/10/25 07:45 01/10/25 07:45
Vital Signs
Temp Pulse Resp BP Pulse Ox
98.9 F 77 20 122/52 91
01/10/25 07:45 01/10/25 07:45 01/10/25 07:45 01/10/25 07:45 01/10/25 07:45
Intake & Output
01/08/25 01/09/25 01/10/25 01/11/25
06:59 06:59 06:59 06:59
Intake Total 1640 / 1640
Balance 1640 / 1640
Physical Exam
Physical Exam
Elderly woman resting in bed, comfortable appearing no distress
Regular rate and rhythm normal S1 and S2, no S3 no S4 grade 1/6 apical holosystolic murmur no rubs. PMI is normally placed
Lungs are clear to auscultation bilaterally without wheezes rales or rhonchi
Abdomen soft nontender nondistended with normoactive bowel sound
Extremities show trace pretibial edema bilaterally
[2025-01-10] MEDS: DULCOLAX 5 MG PO ×2 (11:57→17:39)
[2025-01-10] MEDS: NON-FORMULARY ITEM 1 UNIT PO (15:11)
[2025-01-10 16:20] VITALS: BP 104/51
[2025-01-10] MEDS: LIPITOR 20 MG PO (21:22)
[2025-01-10 23:15] VITALS: BP 109/48
[2025-01-11] VITALS (10 sets, daily range): BP systolic 96–142; BP diastolic 48–91
[2025-01-11] MEDS: TYLENOL PO ×3 (01:03→12:16)
[2025-01-11] MEDS: DILAUDID 0.5 MG IV ×5 (02:05→22:05)
--- NOTE | 2025-01-11 05:13 | W.PN.UPDATE ---
Update Note
Progress Note Update
Patient resting comfortably this AM. Aide at the bedside. For LEFT VIKKI a bit later today via Dr. Patterson. Eliquis washout sufficient for OR today. Consent obtained. T&S good through today. Remain NPO until surgery. AM labs pending- Hgb this AM 12.0.
Tx per primary. Will follow.
[2025-01-11 07:23] LABS: Hematocrit 35.9 % (37.0-47.0); Mean Corp Hgb Conc. 33.4 g/dL (33.0-37.0); Mean Corpuscular Volume 95.7 fL (81.0-99.0); Mean Platelet Volume 9.5 fL (7.4-10.4); Platelet Count 174 10^3/uL (130-400); Red Blood Cell Count 3.75 10^6/uL (4.20-5.40); Red Cell Dist. Width 12.6 % (11.5-14.5); White Blood Cell Count 5.5 10^3/uL (4.8-10.8)
[2025-01-11 08:25] LABS: Blood Urea Nitrogen 8 mg/dl (7-17); Calcium 8.4 mg/dl (8.4-10.2); Carbon Dioxide 28 mmol/L (22-30); Chloride 103 mmol/L (98-107); Estimated Creatinine Clearance 58 ml/min; Glucose 100 mg/dl (70-99); Magnesium 2.1 mg/dl (1.6-2.3); Potassium 4.1 mmol/L (3.5-5.1); Sodium 136 mmol/L (135-145); eGFR > 60.00
[2025-01-11] MEDS: MAGNESIUM OXIDE 250 MG PO ×2 (08:54→20:14)
[2025-01-11] MEDS: LIDOCAINE 4% PATCH 2 PATCH TOPICAL (08:54)
[2025-01-11] MEDS: TYLENOL 650 MG PO ×3 (08:54→20:13)
[2025-01-11] MEDS: DULCOLAX 5 MG PO ×2 (08:55→20:24)
--- NOTE | 2025-01-11 09:48 | W.PN.CARDCBS ---
Today's Communication / Plan
-
for OR
Resume Eliquis once ok with surgery
Impression / Plan
-
.
Impression:
Left hip fracture after mechanical trip and fall
Paroxysmal atrial fibrillation
PVI 2016, eventually after there were no documented recurrences of atrial fibrillation, Eliquis was discontinued but then resumed after her suspected TIA
Possible TIA in early 2022. MRI of the brain October 2022 revealed chronic changes and no acute stroke.
Given the possible TIA she was placed back on Eliquis which had previously been stopped after her PVI.
She has been maintained on Eliquis 2.5 mg twice daily (dose reduced based on age and weight)
Hypertension
Dyslipidemia
Esophageal stricture and dysphagia, gastroesophageal reflux disease
Breast cancer status postlumpectomy
History of basal cell as well as history of squamous cell carcinoma
EKG January 08, 2025 finds sinus rhythm cannot exclude septal infarct age undetermined. No significant changes from ECG May 08, 2024
Echocardiogram November 28, 2022 finds normal left ventricular size and function ejection fraction of 60%, mildly dilated left atrium, mild mitral regurgitation.
Plan:
She is planned for surgical replacement of left hip fracture under spinal anesthesia on Saturday, January 11, 2025.
In general this is considered a low cardiac risk procedure.
Her specific risk going into any surgery includes her advanced age and prior suspected TIA. She is also chronically anticoagulated on Eliquis.
She remains to be considered as not high cardiac risk for the planned surgery.
Cont to hold Eliquis and resume Eliquis once ok with CT surgery.
Check postoperative ECG.
Progress Note - Anesthesiology Physician
Subjective
Date of Service: January 11, 2025
Pt seen and examined. No complaints. No chest pain or shortness of breath.
Objective
Labs:
01/11/25 06:21
01/11/25 06:21
Labs
Hgb 12.0 g/dL (12.0-16.0) 01/11/25 06:21
Hct 35.9 % (37.0-47.0) L 01/11/25 06:21
Plt Count 174 10^3/uL (130-400) 01/11/25 06:21
PT 15.4 Sec (11.4-14.6) H 01/08/25 18:50
INR 1.19 01/08/25 18:50
APTT 33.5 Sec (23.4-35.0) 01/08/25 18:50
Sodium 136 mmol/L (135-145) 01/11/25 06:21
Potassium 4.1 mmol/L (3.5-5.1) 01/11/25 06:21
BUN 8 mg/dl (7-17) 01/11/25 06:21
Creatinine 0.5 mg/dL (0.6-1.0) L 01/11/25 06:21
Glucose 100 mg/dl (70-99) H 01/11/25 06:21
Vital Signs and I&O:
Vital Signs
Temp Pulse Resp BP Pulse Ox
99.7 F 76 18 100/61 91
01/11/25 07:15 01/11/25 07:15 01/11/25 07:15 01/11/25 07:15 01/11/25 07:15
Vital Signs
Temp Pulse Resp BP Pulse Ox
99.7 F 76 18 100/61 91
01/11/25 07:15 01/11/25 07:15 01/11/25 07:15 01/11/25 07:15 01/11/25 07:15
Intake & Output
01/09/25 01/10/25 01/11/25 01/12/25
06:59 06:59 06:59 06:59
Intake Total 1640 / 1640 1080 / 1080
Balance 1640 / 1640 1080 / 1080
Physical Exam
Physical Exam
General: No acute distress, AAOX3
Neck: Negative JVD
Heart: Regular, Negative S3 positive S1/S2, Negative S4, No murmur
Lungs: CTA b/l, negative wheezes/rales/rhonchi
Abd: Positive BS, NT/ND, neg rebound/rigidity/guarding
Ext: Negative cyanosis/clubbing/edema
Neuro: nonfocal
--- NOTE | 2025-01-11 09:55 | CM ---
Cm reviewed medical records. Patient confirmed demographics. Patient lives alone, with periodic home health aide assistance. Patient currently has a 24 hour [employer] at bedside from [facility]. Patient does have ahistory of VN with [facility], but is
currently not on service. Patient does not have ahistory of SNF. Patient has a walker, stair glide, grab bars and a raised toilet seat. Patient is active with her PCP. Patient is still driving and is able to do her own shopping.
Patient is adamant about not going to SNF and would be agreeable to [facility] with 24 hour home health aide assistance. Patient is for OR today. Patient is requesting a hospital bed as she does not have a bedroom on the first floor.
PLAN: Home with VN, 24 hour [employer]LE[employer] support.
--- NOTE | 2025-01-11 13:11 | W.PN.HOSP.TC ---
Addendum entered and electronically signed by Sami Vizcaino DO 01/12/25 11:51:
Patient will need a hospital bed for home, as she requires positioning of the body in ways not feasible with an ordinary bed in order to alleviate pain and requires frequent changes in body position related to left femoral neck fracture in order to
prevent pressure ulcers
Original Note:
Today's Communication/Plan
-
Assessment / Plan
Assessment / Plan
Physical Exam
General: no acute distress appears comfortable at this time
HEENT: NormoCephalic, Moist mucous membranes and Atraumatic
Respiratory: Clear on 2L
Cardiac: S1/S2 and Regular Rhythm
GI: Soft, Non Tender, Non Distended and Normal Bowel Sounds
Genito-urinary: Deferred by me
Musculoskeletal: No Clubbing, No Cyanosis, No Edema, left leg abducted, left hip tenderness
Skin: IV/Catheter Site
Neuro: AOx3 conversant coherent
Psych: Calm and cooperative
89F pAfib Eliquis Esophageal Stricture TIA HTN HLD here for left hip fracture following mechanical fall.
#mechanical fall
#Acute mildly displaced subcapital left hip fracture
- Pelvis CT: Acute mildly displaced subcapital left hip fracture. New from 10/22/2024
- ORIF tentatively planned for today 01/11
- Eliquis has been on hold since last dose on morning of 01/08 pending OR, will restart Eliquis postoperatively
- Acceptable cardiac risk for planned procedure
- Continue multimodal pain control
- Appreciate orthopedic and cardiology guidance
Constipation
-bisacodyl per patient request
-cont laxatives prn
#anemia
monitor H&H, no transfusion necessary at this time.
Iron studies wnl
B12 Folate non-deficient
#hypocalcemia
monitor and replete as necessary
#paroxysmal atrial fibrillation
- hold Eliquis, Last dose 01/08/2025 0830
#hyperlipidemia
- continue atorvastatin
#esophageal stricture with dysphagia
#GERD
- continue omeprazole
#osteoarthritis
status post recent right knee replacement
pain control
#TIA
#hypertension
Code status: DNR
DVT prophylaxis: SCDs
I spent a total of 45 minutes with the patient or on the floor. More than 50% of this time involved counseling and coordination of care.
Anticipated Discharge: 24 - 48 hours
Subjective/Interval History
-
Date of Service: January 11, 2025
Patient was seen and examined at bedside this morning. Generally comfortable after morning pain medications considering subcapital left hip fracture. Awaiting ORIF. Holding Eliquis.
Objective Data
-
Labs:
Laboratory Results
01/11/25
06:21
WBC 5.5
Hgb 12.0
Hct 35.9 L
Plt Count 174
Sodium 136
Potassium 4.1
Chloride 103
Carbon Dioxide 28
BUN 8
Creatinine 0.5 L
Glucose 100 H
Calcium 8.4
Vital Signs:
Vital Signs
Temp Pulse Resp BP Pulse Ox
99.7 F 76 18 100/61 91
01/11/25 07:15 01/11/25 07:15 01/11/25 07:15 01/11/25 07:15 01/11/25 07:15
I&O
01/10/25 01/11/25 01/12/25
06:59 06:59 06:59
Intake Total 1640 / 1640 1080 / 1080
Balance 1640 / 1640 1080 / 1080
Review of Systems
-
History Source: Patient
All other systems: Reviewed and negative
Musculoskeletal: Reports Joint Pain (Left hip pain)
Physical Exam
-
General: No Apparent Distress
[2025-01-11] MEDS: ROXICODONE 5 MG PO ×2 (17:00→20:13)
[2025-01-11] MEDS: NSS 1000 IV (17:41)
[2025-01-11] MEDS: NON-FORMULARY ITEM 1 UNIT PO (17:55)
[2025-01-11] MEDS: ANCEF 5 IV (17:55)
--- NOTE | 2025-01-11 17:59 | PTCARENOTE ---
Pt arrived to [facility] from PACU in a bed 2L of O2 at 96%. Pt returned with primaseal on Left hip C/D/I. Pt oriented to room and call pedro. Care ongoing.
--- NOTE | 2025-01-11 18:55 | VATNOTE ---
R forearm IV noted to have small area of redness. IV D/C'd. Pt not c/o any pain to this VAT RN when IV was in or after it was pulled. About 20 min later, pt c/o soreness at old IV site. Warm compress applied. Will continue to monitor.
[2025-01-11] MEDS: COLACE PO ×2 (20:15→20:21)
[2025-01-11] MEDS: SENOKOT PO ×2 (20:16→20:21)
[2025-01-11] MEDS: BACTROBAN 2% OINTMENT 1 APPLIC NASAL (20:16)
[2025-01-11] MEDS: ELIQUIS 2.5 MG PO (20:16)
[2025-01-11] MEDS: LIPITOR 20 MG PO (20:16)
[2025-01-12] VITALS (8 sets, daily range): BP systolic 102–145; BP diastolic 44–85; PULSE 83–88; O2SAT 95
[2025-01-12] MEDS: TYLENOL PO (00:40)
[2025-01-12] MEDS: ANCEF 5 IV (01:12)
[2025-01-12] MEDS: ROXICODONE 10 MG PO ×2 (01:22→22:20)
[2025-01-12] MEDS: MAALOX 30 ML PO ×2 (03:11→17:49)
[2025-01-12] MEDS: TYLENOL 650 MG PO ×6 (03:11→23:08)
--- NOTE | 2025-01-12 06:27 | W.PN.ORTHO ---
Today's Communication / Plan
-
89-year-old female POD #1 Left VIKKI for Left Femoral Neck Fx 01/11/[address] Patterson.
- Appreciate the primary team with her management, continue Tx.
- CM regarding D/C planning. Plan: Home with VN, 24 hour DRAWER UPFITTER support.
- Continue WBAT B/L LEs on assistive device.
- PT/OT, THP's.
- Pain control per primary team.
- DVT ppx: Eliquis 2.5mg BID x 3 days, then resume normal dose.
- Hgb this AM pending. Continue to monitor and trend.
- Dressings to remain intact 7-10 days.
- Follow-up as outpatient 2 weeks from date of surgery for staple removal.
- Orthopedic surgery will continue to follow.
Assessment
.
Distal Motor Intact: Yes
Dressing:
Primaseal dressing to right hip CDI.
Assessment:
POD #1 Left VIKKI for Left Femoral Neck Fx
Calf Soft and nontender
Plan
.
Surgery / Date: L VIKKI 01/11/[address] Patterson
DVT Prophylaxis: Other (Eliquis)
Activity:
Out of bed.
PT/OT. WBAT LLE with use of walker for assistance.
THP's.
Discharge Plan: Other
Discharge Information:
Appreciate CM.
Subjective
.
.:
Patient resting comfortably.
Vital Signs and Labs
.
Vital Signs and Labs:
Temp Pulse Resp BP Pulse Ox
98.5 F 80 17 132/50 97
01/12/25 03:13 01/12/25 03:13 01/12/25 03:13 01/12/25 03:13 01/12/25 03:13
PT 15.4 Sec (11.4-14.6) H 01/08/25 18:50
INR 1.19 01/08/25 18:50
[2025-01-12 07:20] LABS: Hematocrit 29.8 % (37.0-47.0); Hemoglobin 9.9 g/dL (12.0-16.0); Mean Corp Hgb Conc. 33.2 g/dL (33.0-37.0); Mean Corpuscular Volume 96.4 fL (81.0-99.0); Mean Platelet Volume 9.4 fL (7.4-10.4); Platelet Count 175 10^3/uL (130-400); Red Blood Cell Count 3.09 10^6/uL (4.20-5.40); Red Cell Dist. Width 12.5 % (11.5-14.5); White Blood Cell Count 7.3 10^3/uL (4.8-10.8)
[2025-01-12 07:46] LABS: Blood Urea Nitrogen 12 mg/dl (7-17); Carbon Dioxide 29 mmol/L (22-30); Chloride 100 mmol/L (98-107); Estimated Creatinine Clearance 58 ml/min; Glucose 133 mg/dl (70-99); Magnesium 2.1 mg/dl (1.6-2.3); Phosphorus 3.3 mg/dl (2.5-4.5); Potassium 4.7 mmol/L (3.5-5.1); Sodium 132 mmol/L (135-145); eGFR > 60.00
[2025-01-12] MEDS: ROXICODONE 5 MG PO ×3 (08:19→17:46)
[2025-01-12] MEDS: BACTROBAN 2% OINTMENT 1 APPLIC NASAL ×2 (08:20→20:20)
[2025-01-12] MEDS: LIDOCAINE 4% PATCH 2 PATCH TOPICAL (08:21)
[2025-01-12] MEDS: MAGNESIUM OXIDE 250 MG PO ×2 (08:21→20:20)
[2025-01-12] MEDS: COLACE 100 MG PO (08:22)
[2025-01-12] MEDS: DULCOLAX 5 MG PO (08:22)
[2025-01-12] MEDS: SENOKOT 17.2 MG PO (08:22)
[2025-01-12] MEDS: ELIQUIS 2.5 MG PO ×2 (08:23→20:20)
--- NOTE | 2025-01-12 11:19 | CM ---
CM following re: discharge planning.
Reviewed pt's chart, met with pt and daughter Pretty at bedside.
Pt is POD #1 Left VIKKI for Left Femoral Neck Fx, continue supportive care.
Pt and OT evaluations noted - pt requires max assistance and 24/7 care recommended with PT and OT.
Both pt and pt's daughter requested pt returns back home with [facility] and resumptions of caregiver services. A referral to [facility] made.
Per daughter pt will need a hospital bed and [facility] liaison will work on it.
Per daughter, pt might need ambulance transport to get home. Per daughter pt has 3 steps to enter.
D/C plan: home with [facility], resumptions of 24/7 caregiver services and family support.
CM will follow with discharge plan updates as hospitalization progresses
--- NOTE | 2025-01-12 11:20 | W.PN.CARDCBS ---
Addendum entered and electronically signed by Melvin Uriarte DO 01/12/25 14:23:
I saw and examined the patient.
The Cattle Examiner's note was reviewed and I agree with the note.
Comment:
Plan:
Cont post op care
Eliquis being resumed as per ortho
Reviewed with family at bedside.
Outpt follow up arranged
Please recall if needed
Original Note:
Today's Communication / Plan
-
continue post op care, PT
eliquis resumed as per ortho
OP cardiac follow up arranged
Impression / Plan
-
.
Impression:
Left hip fracture after mechanical trip and fall s/p Left VIKKI for Left Femoral Neck Fx 01/11/2025
Paroxysmal atrial fibrillation
PVI 2016, eventually after there were no documented recurrences of atrial fibrillation, Eliquis was discontinued but then resumed after her suspected TIA
Possible TIA in early 2022. MRI of the brain October 2022 revealed chronic changes and no acute stroke.
Given the possible TIA she was placed back on Eliquis which had previously been stopped after her PVI.
Hypertension
Dyslipidemia
Esophageal stricture and dysphagia, gastroesophageal reflux disease
Breast cancer status postlumpectomy
History of basal cell as well as history of squamous cell carcinoma
EKG January 08, 2025 finds sinus rhythm cannot exclude septal infarct age undetermined. No significant changes from ECG May 08, 2024
Echocardiogram November 28, 2022 finds normal left ventricular size and function ejection fraction of 60%, mildly dilated left atrium, mild mitral regurgitation.
Plan:
-s/p L VIKKI for L femoral neck fracture 01/11/25
-continue post op care, OOB as able with PT/OT
-eliquis resumed per ortho - on 2.5mg until 01/14 then to be transitioned to 5mg BID.
-would follow weights as OP as is close for lower dose of eliquis due to age >81. weight presently 62.7kg
-remains in SR on review of tele overnight. not on av antonia blocking agents as OP
-will arrange OP cardiac follow up
Progress Note - Box Brander
Subjective
Date of Service: January 12, 2025
working with PT
Objective
Labs:
01/12/25 06:56
01/12/25 06:56
Labs
Hgb 9.9 g/dL (12.0-16.0) L 01/12/25 06:56
Hct 29.8 % (37.0-47.0) L 01/12/25 06:56
Plt Count 175 10^3/uL (130-400) 01/12/25 06:56
PT 15.4 Sec (11.4-14.6) H 01/08/25 18:50
INR 1.19 01/08/25 18:50
APTT 33.5 Sec (23.4-35.0) 01/08/25 18:50
Sodium 132 mmol/L (135-145) L 01/12/25 06:56
Potassium 4.7 mmol/L (3.5-5.1) 01/12/25 06:56
BUN 12 mg/dl (7-17) 01/12/25 06:56
Creatinine 0.5 mg/dL (0.6-1.0) L 01/12/25 06:56
Glucose 133 mg/dl (70-99) H 01/12/25 06:56
Vital Signs and I&O:
Vital Signs
Temp Pulse Resp BP Pulse Ox
98.8 F 76 16 102/85 97
01/12/25 07:40 01/12/25 07:40 01/12/25 07:40 01/12/25 07:40 01/12/25 08:24
Vital Signs
Temp Pulse Resp BP Pulse Ox
98.8 F 76 16 102/85 97
01/12/25 07:40 01/12/25 07:40 01/12/25 07:40 01/12/25 07:40 01/12/25 08:24
Intake & Output
01/10/25 01/11/25 01/12/25 01/13/25
07:59 07:59 07:59 07:59
Intake Total 1640 / 1640 1080 / 1080 1330 / 1330
Balance 1640 / 1640 1080 / 1080 1330 / 1330
Physical Exam
Physical Exam
GEN: No distress, awake, alert. ambulating with PT
HEENT: supple, mmm
LUNGS: no audible wheezes
CV: Reg on tele
--- NOTE | 2025-01-12 11:58 | VNURNOTE ---
Home Health Liaison attempted to meet with patient- she was working with PT in hospital room. [facility] liaison called patient's daughter Keke to discuss [facility] nurse/therapy, visits, schedule and homebound status. She is agreeable and understands that
visits at home will be 2-3 x per week to assess and teach medical management. Daughter is aware that [facility] will contact them for start of care in 1-2 days after discharge from . Requesting hospital bed for home. Daughter aware that bed delivery
may take a few days and that may delay the DC. She verbalized understanding.
Hospital bed: Faxed DME Rx and clinicals to [facility] at [facility].
[facility] referral completed in [facility].
--- NOTE | 2025-01-12 14:37 | W.PN.HOSP.TC ---
Today's Communication/Plan
-
Assessment / Plan
Assessment / Plan
Physical Exam
General: no acute distress, appears comfortable at this time
HEENT: NormoCephalic, Moist mucous membranes and Atraumatic
Respiratory: Clear on 2L
Cardiac: S1/S2 and Regular Rhythm
GI: Soft, Non Tender, Non Distended and Normal Bowel Sounds
Genito-urinary: Deferred by me
Musculoskeletal: No Clubbing, No Cyanosis, No Edema, left hip surgical dressing with mild strikethrough
Skin: IV/Catheter Site
Neuro: AOx3 conversant coherent
Psych: Calm and cooperative
89F pAfib Eliquis Esophageal Stricture TIA HTN HLD here for left hip fracture following mechanical fall.
#mechanical fall
#Acute mildly displaced subcapital left hip fracture
- Pelvis CT: Acute mildly displaced subcapital left hip fracture. New from 10/22/2024
- Status post OR 01/11 with orthopedics for left VIKKI
- Eliquis restarted at reduced dose of 2.5 twice daily for 3 days, then will resume full dose
- Continue multimodal pain control
- Planning home with home health once arranged, medically stable for discharge
Constipation
-bisacodyl per patient request
-cont laxatives prn
#anemia
monitor H&H, no transfusion necessary at this time.
Iron studies wnl
B12 Folate non-deficient
#hypocalcemia
monitor and replete as necessary
#paroxysmal atrial fibrillation
- hold Eliquis, Last dose 01/08/2025 0830
#hyperlipidemia
- continue atorvastatin
#esophageal stricture with dysphagia
#GERD
- continue omeprazole
#osteoarthritis
status post recent right knee replacement
pain control
#TIA
#hypertension
Code status: DNR
DVT prophylaxis: Eliquis
I spent a total of 40 minutes with the patient or on the floor. More than 50% of this time involved counseling and coordination of care.
Anticipated Discharge: 24 - 48 hours
Subjective/Interval History
-
Date of Service: January 12, 2025
Patient was seen and examined this morning. Status post left VIKKI yesterday, tolerated procedure well. Working with PT/OT this morning.
Objective Data
-
Labs:
Laboratory Results
01/12/25
06:56
WBC 7.3
Hgb 9.9 L
Hct 29.8 L
Plt Count 175
Sodium 132 L
Potassium 4.7
Chloride 100
Carbon Dioxide 29
BUN 12
Creatinine 0.5 L
Glucose 133 H
Calcium 8.0 L
Vital Signs:
Vital Signs
Temp Pulse Resp BP Pulse Ox
98.5 F 88 16 114/44 95
01/12/25 11:20 01/12/25 11:20 01/12/25 11:20 01/12/25 11:20 01/12/25 11:20
I&O
01/11/25 01/12/25 01/13/25
06:59 06:59 06:59
Intake Total 1080 / 1080 1330 / 1330 480 / 480
Balance 1080 / 1080 1330 / 1330 480 / 480
Review of Systems
-
History Source: Patient
All other systems: Reviewed and negative
Musculoskeletal: Reports Joint Pain (Left hip pain)
Physical Exam
-
General: No Apparent Distress
[2025-01-12] MEDS: NON-FORMULARY ITEM 1 UNIT PO (15:43)
[2025-01-12] MEDS: SENOKOT PO (20:20)
[2025-01-12] MEDS: COLACE PO (20:20)
[2025-01-12] MEDS: LIPITOR 20 MG PO (22:06)
[2025-01-12] MEDS: SENOKOT-S 1 TABLET PO (22:06)
[2025-01-13] VITALS (8 sets, daily range): BP systolic 81–142; BP diastolic 41–96; PULSE 75–93; O2SAT 92
[2025-01-13] MEDS: TYLENOL 650 MG PO ×6 (03:25→23:06)
[2025-01-13 06:24] LABS: Hematocrit 27.6 % (37.0-47.0); Hemoglobin 9.3 g/dL (12.0-16.0); Mean Corp Hgb Conc. 33.7 g/dL (33.0-37.0); Mean Corpuscular Hgb 31.7 pg (27.0-31.0); Mean Corpuscular Volume 94.2 fL (81.0-99.0); Mean Platelet Volume 9.6 fL (7.4-10.4); Platelet Count 186 10^3/uL (130-400); Red Blood Cell Count 2.93 10^6/uL (4.20-5.40); Red Cell Dist. Width 12.4 % (11.5-14.5); White Blood Cell Count 7.9 10^3/uL (4.8-10.8)
--- NOTE | 2025-01-13 06:55 | W.PN.UPDATE ---
Update Note
Progress Note Update
Ms. Mcpherson is POD2 following her left VIKKI for femoral neck fracture performed by Dr. Patterson. She is resting comfortably in bed this morning. She reports she did have quite a bit of pain with physical therapy, but states her pain is controlled with
her current medication regimen.
Directed exam of the left lower extremity reveals dried blood on bandage. No significant tenderness to palpation about the hip. Thigh soft and compressible. Calf soft and nontender. Patient able to wiggle toes, plantar and dorsiflex ankle.
Neurovascularly intact distally.
Hgb 9.3 this AM.
89-year-old female POD #2 Left VIKKI for Left Femoral Neck Fx 01/11/[address] Patterson.
--Appreciate the primary team with her management, continue Tx.
--CM regarding D/C planning. Plan: Home with VN, 24 hour GAS SYSTEMS WORKER support.
--Continue WBAT B/L LEs on assistive device. THP's. We appreciate the assistance of PT/OT.
--Pain control per primary team.
--DVT ppx: Eliquis 2.5mg BID x 3 days, then resume normal dose.
--Hgb 9.3 this AM. Continue to monitor.
--Dressings to remain intact 7-10 days. Follow-up as outpatient 2 weeks from date of surgery for staple removal.
--Patient is stable post-operatively from an orthopedic standpoint. Orthopedics will sign off for now. Please reach out with any additional orthopedic questions or concerns.
[2025-01-13 07:08] LABS: Blood Urea Nitrogen 13 mg/dl (7-17); Calcium 7.8 mg/dl (8.4-10.2); Carbon Dioxide 27 mmol/L (22-30); Chloride 101 mmol/L (98-107); Estimated Creatinine Clearance 58 ml/min; Glucose 117 mg/dl (70-99); Magnesium 2.2 mg/dl (1.6-2.3); Phosphorus 2.5 mg/dl (2.5-4.5); Sodium 130 mmol/L (135-145); eGFR > 60.00
[2025-01-13] MEDS: ROXICODONE 10 MG PO ×3 (08:15→23:05)
[2025-01-13] MEDS: MAGNESIUM OXIDE 250 MG PO (08:16)
[2025-01-13] MEDS: MILK OF MAGNESIA 30 ML PO (08:16)
[2025-01-13] MEDS: ELIQUIS 2.5 MG PO ×2 (08:17→20:42)
[2025-01-13] MEDS: COLACE 100 MG PO (08:17)
[2025-01-13] MEDS: DULCOLAX 5 MG PO ×2 (08:17→13:14)
[2025-01-13] MEDS: SENOKOT PO ×3 (08:18→20:38)
[2025-01-13] MEDS: LIDOCAINE 4% PATCH 2 PATCH TOPICAL (08:18)
--- NOTE | 2025-01-13 10:39 | CM ---
CM following re: discharge planning.
Reviewed pt's chart, met with pt and spoke to pt's daughter Jaky over the phone to update on discharge plan progress.
Per daughter, a hospital bed will be delivered to pt's home somehow this afternoon and caregiver services will be available for pt tomorrow. Per daughter, everything will be set up today for pt returning back home tomorrow.
IMM reviewed with the pt, signed, placed on chart, pt has a copy.
[facility] liaison following.
Please fax discharge instructions to [facility] at [phone].
D/C plan: home with [facility], resumptions of 24/7 caregiver services and family support. Pt will need ambulance transport.
CM will follow to assist pt with discharge home with after care services.
[2025-01-13] MEDS: FERRLECIT 110 MG IV (12:59)
--- NOTE | 2025-01-13 13:03 | W.PN.HOSP.TC ---
Today's Communication/Plan
-
Assessment / Plan
Assessment / Plan
Physical Exam
General: no acute distress, appears comfortable
HEENT: NormoCephalic, Moist mucous membranes and Atraumatic
Respiratory: Clear to auscultation bilaterally, no accessory muscle use
Cardiac: S1/S2 and Regular Rhythm
GI: Soft, Non Tender, Non Distended and Normal Bowel Sounds
Musculoskeletal: No Clubbing, No Cyanosis, No Edema, left hip surgical dressing with mild strikethrough
Skin: Warm and dry
Neuro: AOx3 conversant coherent
Psych: Calm and cooperative
89F pAfib Eliquis Esophageal Stricture TIA HTN HLD here for left hip fracture following mechanical fall.
#mechanical fall
#Acute mildly displaced subcapital left hip fracture
- Pelvis CT: Acute mildly displaced subcapital left hip fracture. New from 10/22/2024
- Status post OR 01/11 with orthopedics for left VIKKI
- Eliquis restarted at reduced dose of 2.5 twice daily for 3 days, then will resume full dose (evening of 01/14)
- Continue multimodal pain control
- Planning home with home health, medically stable for discharge, hospital bed being delivered to home
Constipation
-bisacodyl per patient request
-cont laxatives prn
#anemia
- Acute on chronic, likely due to some intraoperative blood loss, no active bleeding
- No transfusion indicated at this time
- Will give a dose of IV iron
- Monitor
#hypocalcemia
monitor and replete as necessary
#paroxysmal atrial fibrillation
- Currently rate controlled
- Restarted Eliquis at low-dose for 3 days postoperatively, resume full dose evening of 01/14
#hyperlipidemia
- continue atorvastatin
#esophageal stricture with dysphagia
#GERD
- continue omeprazole
#osteoarthritis
status post recent right knee replacement
pain control
#TIA
#hypertension
Code status: DNR
DVT prophylaxis: Eliquis
I spent a total of 40 minutes with the patient or on the floor. More than 50% of this time involved counseling and coordination of care.
Anticipated Discharge: 24 - 48 hours
Subjective/Interval History
-
Date of Service: January 13, 2025
Patient was seen and examined at bedside this morning. No acute distress, comfortable.
Objective Data
-
Labs:
Laboratory Results
01/13/25
05:33
WBC 7.9
Hgb 9.3 L
Hct 27.6 L
Plt Count 186
Sodium 130 L
Potassium 4.0
Chloride 101
Carbon Dioxide 27
BUN 13
Creatinine 0.5 L
Glucose 117 H
Calcium 7.8 L
Vital Signs:
Vital Signs
Temp Pulse Resp BP Pulse Ox
98.0 F 75 15 120/59 95
01/13/25 11:55 01/13/25 11:55 01/13/25 11:55 01/13/25 11:55 01/13/25 11:55
I&O
01/12/25 01/13/25 01/14/25
06:59 06:59 06:59
Intake Total 1330 / 1330 1440 / 1440 420 / 420
Balance 1330 / 1330 1440 / 1440 420 / 420
Review of Systems
-
History Source: Patient
All other systems: Reviewed and negative
Musculoskeletal: Reports Joint Pain (Left hip pain)
Physical Exam
-
General: No Apparent Distress
[2025-01-13] MEDS: NON-FORMULARY ITEM 1 UNIT PO (16:36)
--- NOTE | 2025-01-13 16:50 | VATNOTE ---
No further redness or discomfort noted from prior IV site. Resolved.
[2025-01-13] MEDS: ZOFRAN 4 MG IV (18:45)
[2025-01-13] MEDS: COLACE PO (20:38)
[2025-01-13] MEDS: MAGNESIUM OXIDE PO (20:42)
[2025-01-13] MEDS: LIPITOR 20 MG PO (21:42)
[2025-01-14] MEDS: TYLENOL 650 MG PO ×3 (03:12→12:03)
[2025-01-14 06:44] LABS: Hematocrit 27.4 % (37.0-47.0); Hemoglobin 9.6 g/dL (12.0-16.0); Mean Corpuscular Hgb 32.5 pg (27.0-31.0); Mean Corpuscular Volume 92.9 fL (81.0-99.0); Mean Platelet Volume 9.2 fL (7.4-10.4); Platelet Count 197 10^3/uL (130-400); Red Blood Cell Count 2.95 10^6/uL (4.20-5.40); Red Cell Dist. Width 12.4 % (11.5-14.5)
[2025-01-14 07:14] LABS: Blood Urea Nitrogen 10 mg/dl (7-17); Calcium 8.2 mg/dl (8.4-10.2); Carbon Dioxide 29 mmol/L (22-30); Chloride 101 mmol/L (98-107); Estimated Creatinine Clearance 58 ml/min; Glucose 97 mg/dl (70-99); Magnesium 2.5 mg/dl (1.6-2.3); Potassium 4.5 mmol/L (3.5-5.1); Sodium 132 mmol/L (135-145); eGFR > 60.00
[2025-01-14 07:35] VITALS: BP 112/64
[2025-01-14] MEDS: MAGNESIUM OXIDE 250 MG PO (07:59)
[2025-01-14] MEDS: ROXICODONE 10 MG PO (07:59)
[2025-01-14] MEDS: ELIQUIS 2.5 MG PO (08:00)
[2025-01-14] MEDS: DULCOLAX PO (08:01)
[2025-01-14] MEDS: COLACE 100 MG PO (08:01)
[2025-01-14] MEDS: LIDOCAINE 4% PATCH 2 PATCH TOPICAL (08:01)
[2025-01-14] MEDS: SENOKOT PO (08:02)
--- NOTE | 2025-01-14 09:47 | CM ---
CM following re: discharge planning.
Reviewed pt's chart, met with pt and spoke to pt's daughter Pretty over the phone to update on discharge plan progress.
Pt is POD3 following her left VIKKI for femoral neck fracture, doing well.
Per daughter, a hospital bed delivered to pt's home yesterday and caregiver services available today at 1:00 p.m. . Per daughter, everything is set up today for pt returning back home today. pt's daughter requested ambulance transport.
IMM reviewed yesterday with the pt, signed, placed on chart, pt has a copy.
[facility] liaison following.
to arrange ambulance BLS with requested rock picker time 1:00 p.m. PMNC completed and left with .
Please fax discharge instructions to [facility] at [phone].
D/C plan: home with [facility], resumptions of 24/7 caregiver services and family support.
--- NOTE | 2025-01-14 09:59 | W.DCSUMMARY ---
Addendum entered and electronically signed by Sami Vizcaino DO 01/15/25 10:41:
Hyponatremia was mild and clinically insignificant
Original Note:
Discharge Summary
Discharge Data
Date of Admission: 01/08/25
Date of Discharge: 01/14/25
Total time spent discharging patient (in min): 40
-
Pending Results: No
Hospital Course
Ms. Mcpherson is an 89-year-old female with a medical history of A-fib (on Eliquis), esophageal stricture, hypertension, and TIA who presented with a left hip fracture following a mechanical fall. She was brought to the OR with orthopedics on 01/11 for
ORIF. Her Eliquis was restarted postoperatively at a reduced dose of 2.5 twice daily for 3 days. She will resume full dose of 5 mg twice daily on the evening of 01/14. She should continue on multimodal pain control and will be discharged with a
prescription for a short course of opiate pain medications. She will continue physical therapy at home. She tolerated the procedure well and has remained hemodynamically stable. At this time she is medically stable for discharge to home with
ongoing physical therapy. She will need to follow-up in the orthopedic outpatient office in 2 weeks for the date of her surgery for staple removal.
Physical Exam
General: no acute distress, appears comfortable
HEENT: NormoCephalic, Moist mucous membranes and Atraumatic
Respiratory: Clear to auscultation bilaterally, no accessory muscle use
Cardiac: S1/S2 and Regular Rhythm
GI: Soft, Non Tender, Non Distended and Normal Bowel Sounds
Musculoskeletal: No Clubbing, No Cyanosis, No Edema
Skin: Warm and dry
Neuro: AOx3 conversant coherent
Psych: Calm and cooperative
Discharge Plan
-
Patient Disposition: Home with Home Care
Discharge Diagnosis/Procedures: Left subcapital hip fracture
Diet: Regular
Activity: As tolerated
Other Services: VN and PT
Activity Restrictions/Additional Instructions:
Ms. Mcpherson is an 89-year-old female with a medical history of A-fib (on Eliquis), esophageal stricture, hypertension, and TIA who presented with a left hip fracture following a mechanical fall. She was brought to the OR with orthopedics on 01/11 for
ORIF. Her Eliquis was restarted postoperatively at a reduced dose of 2.5 twice daily for 3 days. She will resume full dose of 5 mg twice daily on the evening of 01/14. She should continue on multimodal pain control and will be discharged with a
prescription for a short course of opiate pain medications. She will continue physical therapy at home. She tolerated the procedure well and has remained hemodynamically stable. At this time she is medically stable for discharge to home with
ongoing physical therapy. She will need to follow-up in the orthopedic outpatient office in 2 weeks for the date of her surgery for staple removal.
Referrals:
Lexus Woods MD [Family Provider, Internal Medicine]
Vonda Carroll PA-C [Specified Professional Personl, Cardiology] - 02/24/25 2:40 pm
Referral Note: You have a cardiology follow up appointment at the [place] office with Dr. Velásquez's physician compounding assistant, Vonda. Please call with questions.
Prescriptions:
New
docusate sodium 100 mg Capsule
100 mg PO BID 5 Days Qty: 10 0RF
bisacodyl 5 mg Tablet,Delayed Release (Dr/Ec)
5 mg PO DAILY 5 Days Qty: 5 0RF
lidocaine 4 % Adhesive Patch,Medicated
2 patch topical DAILY Qty: 10 0RF
oxycodone 10 mg Tablet
10 mg PO Q4HPRN PRN (Reason: severe pain) Qty: 20 0RF
Continued
atorvastatin 20 mg Tablet
20 mg PO HS
Eliquis 5 mg Tablet
5 mg PO BID
acetaminophen [Tylenol Extra Strength] 500 mg tablet
1,000 mg PO Q8HPRN PRN (Reason: mild pain)
omeprazole 40 mg Capsule,Delayed Release(Dr/Ec)
40 mg PO DAILY
magnesium oxide 250 mg magnesium Tablet
250 mg PO BID
Discharge Orders:
Discharge Patient (As Directed); Ordered 01/14/25
Ordered By: Sami Vizcaino
Discharge Date and Time
Print Language: PANAMANIAN
--- NOTE | 2025-01-14 14:04 | PTCARENOTE ---
Discharge ordered for Pt. 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 All questions answered. IV removed. Information provided to ambulance transfer squad. Discharged to home.
--- NOTE | 2025-01-15 10:25 | PN.CDI ---
CDI
- -
CDI:
Physician Documentation Request
Admit Date: 01/08/25 20:45
Dear Doctor Charis,
Please review the following and provide your response in the progress notes.
Clinical Indicators:
- Patient admit for left hip fracture
- 1.5L IVF give
- Na labs as follows:
Laboratory Tests
01/09/25 01/10/25 01/11/25
05:27 05:26 06:21
Sodium 135 132 L 136
01/12/25 01/13/25 01/14/25
06:56 05:33 06:21
Sodium 132 L 130 L 132 L
Please provide a diagnosis for the above lab values that were monitored and treatment rendered:
Hyponatremia
Clinically insignificant abnormal lab value
Other (please specify)
Use of terms such as suspected, likely, concern for, or probable (associated with a specific diagnosis that is being evaluated, monitored, or treated as if it exists) are acceptable and can be coded in the inpatient setting, when documented at the
time of discharge.
Thank you,
Joseph Marroquin RN
CDI Specialist
Please use your independent medical judgment in providing your response.
== END 2025-01-14 13:58 | disposition home health service (06) | DRG 522 ==
LOC: 2 SOUTH 20:45
PROVIDERS: Internal Medicine; Nurse Practitioner Family; ADMITTING PHYSICIAN Hospitalist; ATTENDING PHYSICIAN Internal Medicine; CONSULT PHYSICIAN Internal Medicine Cardiovascular Disease; CONSULT PHYSICIAN Specialist; EMERGENCY PHYSICIAN Emergency Medicine; FAMILY PHYSICIAN Internal Medicine
PROC: 0SRB02A Replacement of Left Hip Joint with Metal on Polyethylene Synthetic Substitute, Uncemented, Open Approach (ICD-10-PCS; 2025-01-11)
DX: S72.012A Unspecified intracapsular fracture of left femur, initial encounter for closed fracture (principal); E87.1 Hypo-osmolality and hyponatremia; W01.0XXA Fall on same level from slipping, tripping and stumbling without subsequent striking against object, initial encounter; I48.0 Paroxysmal atrial fibrillation; K21.9 Gastro-esophageal reflux disease without esophagitis; K22.2 Esophageal obstruction; Z87.891 Personal history of nicotine dependence; Z66 Do not resuscitate
CPT/HCPCS: 72170; 72192; 72220; 73502; 73552; 73560; 80048; 80053; 82077; 82607; 82728; 82746; 83540; 83550; 83735; 84100; 85025; 85027; 85610; 85730; 86850; 86900; 86901; 93005; 96374; 96375; 96376; 97110; 97163; 97167; 97530; 97535; 99285; C1713; C1776; J2916

== ENCOUNTER → 2025-07-30 14:17 | Outpatient (REF) | payer MEDICARE, BC, SELFPAY ==
[2025-07-30 16:22] LABS: C-Reactive Protein 32.20 mg/L (0.0-10.00)
== END ==
LOC: REG 14:17
PROVIDERS: ATTENDING PHYSICIAN Nurse Practitioner; FAMILY PHYSICIAN Internal Medicine
DX: Z47.1 Aftercare following joint replacement surgery (principal); M17.12 Unilateral primary osteoarthritis, left knee; M25.562 Pain in left knee; Z96.652 Presence of left artificial knee joint
CPT/HCPCS: 36415; 85652; 86140